=== PATIENT | female | born 1960 | race Caucasian/White ===

== ENCOUNTER → 2016-11-17 | Outpatient (CLI) | payer OTHER ==
[~2016-11-17] VITALS: Ht 170.2 cm; Wt 108.9 kg
[~2016-11-17] MED LIST: IBUP40TA PO; LEVO500T32 PO; LIDOCAINE 2% INJ 100 MG/5 ML SDV (FOR ANES.) As Ordered ONE; LR 1,000 ML IV SCH; MONT10TA2 PO; PROPOFOL 200 MG/20 ML VIAL As Ordered ONE; SUDATAB15 PO; ZYRTCHW PO
[2016-11-17 09:15] VITALS: BP 163/101
--- NOTE | 2016-11-17 10:14 | ROOR ---
Patient Name: Makenna Wilkerson Procedure Date: 11/17/2016 8:15 AM Date of : 1960 Age: 56 Room: [facility] Gender: Female Note Status: Finalized Procedure: Colonoscopy Indications: Surveillance: Personal history of adenomatous polyps on last colonoscopy > 5 years ago, Last colonoscopy: January 2010 Providers: Celio Rodgers MD Referring MD: EUSEBIO REID NP Requesting Provider: Medicines: Monitored Anesthesia Care Complications: No immediate complications. Procedure: Pre-Anesthesia Assessment: - Prior to the procedure, a History and Physical was performed, and patient medications and allergies were reviewed. The patient is competent. The risks and benefits of the procedure and the sedation options and risks were discussed with the patient. All questions were answered and informed consent was obtained. Patient identification and proposed procedure were verified by the physician, the nurse and the anesthesiologist in the procedure room. Mental Status Examination: alert and oriented. Airway Examination: normal oropharyngeal airway and neck mobility. CV Examination: regular rate and rhythm. Prophylactic Antibiotics: The patient does not require prophylactic antibiotics. Prior Anticoagulants: The patient has taken no previous anticoagulant or antiplatelet agents. ASA Grade Assessment: II - A patient with mild systemic disease. After reviewing the risks and benefits, the patient was deemed in satisfactory condition to undergo the procedure. The anesthesia plan was to use monitored anesthesia care (MAC). Immediately prior to administration of medications, the patient was re-assessed for adequacy to receive sedatives. The heart rate, respiratory rate, oxygen saturations, blood pressure, adequacy of pulmonary ventilation, and response to care were monitored throughout the procedure. The physical status of the patient was re-assessed after the procedure. The Colonoscope was introduced through the anus and advanced to the cecum, identified by appendiceal orifice and ileocecal valve. The colonoscopy was somewhat difficult due to multiple diverticula in the colon. The patient tolerated the procedure well. The quality of the bowel preparation was good. Findings: The perianal and digital rectal examinations were normal. Many large-mouthed diverticula were found in the entire colon. The exam was otherwise without abnormality. There was a small lipoma, 15 mm in diameter, in the cecum. Impression: - Diverticulosis in the entire examined colon. - The examination was otherwise normal. - No specimens collected. Recommendation: - Discharge patient to home. - Resume regular diet. - Continue present medications. Celio Rodgers MD 11/17/2016 10:14:39 AM Number of Addenda: 0 Note Initiated On: 11/17/2016 8:15 AM Estimated Blood Loss: Estimated blood loss: none.
== END | disposition home or self-care (01) ==
LOC: M OPP 07:25
PROVIDERS: ATTEND Surgery
DX: Z12.11 Encounter for screening for malignant neoplasm of colon (principal); Z86.010 Personal history of colon polyps; K57.30 Diverticulosis of large intestine without perforation or abscess without bleeding; D17.5 Benign lipomatous neoplasm of intra-abdominal organs; R12 Heartburn; R06.83 Snoring; G89.29 Other chronic pain; M79.1 Myalgia; F41.9 Anxiety disorder, unspecified; Z88.2 Allergy status to sulfonamides; Z88.1 Allergy status to other antibiotic agents

== ENCOUNTER → 2017-03-11 | Outpatient (REF) | payer OTHER ==
[~2017-03-11] MED LIST changes: -LIDOCAINE 2% INJ 100 MG/5 ML SDV (FOR ANES.) As Ordered ONE; -LR 1,000 ML IV SCH; -PROPOFOL 200 MG/20 ML VIAL As Ordered ONE
== END ==
LOC: M LAB REF 11:20
PROVIDERS: ATTEND Surgery
DX: D48.5 Neoplasm of uncertain behavior of skin (principal)

== ENCOUNTER → 2017-08-17 | Outpatient (CLI) | payer OTHER ==
[~2017-08-17] MED LIST changes: +LEVO500T3 PO; -LEVO500T32 PO
[2017-08-17 09:00] LABS: BASO % 0.3 % (0.0-1.0); EOS # 0.2 10^3/uL (0.0-0.50); EOS % 2.5 % (0.0-3.0); IMMATURE GRANULOCYTE % 0.3 % (0-0); LYMPH # 0.8 10^3/uL (1.5-4.5); LYMPH % 14.1 % (24.0-44.0); MEAN CORPUSCULAR HEMOGLOBIN 27.1 pg (27.0-33.0); MEAN CORPUSCULAR HGB CONC 32.1 g/dl (32.0-36.5); MEAN CORPUSCULAR VOLUME 84.3 fl (80.0-96.0); MONO # 0.4 10^3/uL (0.0-0.8); MONO % 6.9 % (0.0-5.0); NEUTROPHILS # 4.5 10^3/uL (1.8-7.7); NEUTROPHILS % 75.9 % (36.0-66.0); PLATELET COUNT, AUTOMATED 200 10^3/uL (150-450); RED CELL DISTRIBUTION WIDTH 14.5 % (11.5-14.5)
[2017-08-17 09:01] LABS: ADD MANUAL DIFFER NO; DIFF SLIDE NUMBER 136
[2017-08-17 10:57] LABS: ALBUMIN 3.8 GM/DL (3.2-5.2); ALKALINE PHOSPHATASE 101 U/L (45-117); ALT/SGPT 22 U/L (12-78); ANION GAP 5 MEQ/L (8-16); AST/SGOT 13 U/L (15-37); BILIRUBIN,TOTAL 0.6 MG/DL (0.2-1.0); BLOOD UREA NITROGEN 14 MG/DL (7-18); CALCIUM LEVEL 9.2 MG/DL (8.5-10.1); CARBON DIOXIDE LEVEL 33 MEQ/L (21-32); CHLORIDE LEVEL 103 MEQ/L (98-107); CHOLESTEROL LEVEL 171 MG/DL (<200); CREATININE FOR GFR 0.66 MG/DL (0.55-1.02); FREE T4 1.16 NG/DL (0.76-1.46); GLOMERULAR FILTRATION RATE > 60.0 (>51); GLUCOSE, FASTING 94 MG/DL (70-105); POTASSIUM SERUM 4.3 MEQ/L (3.5-5.1); SODIUM LEVEL 141 MEQ/L (136-145); TOTAL PROTEIN 7.6 GM/DL (6.4-8.2); TRIGLYCERIDES LEVEL 164 MG/DL (<150)
== END ==
LOC: M WUC 08:19
PROVIDERS: ATTEND Nurse Practitioner Adult Health
DX: E55.9 Vitamin D deficiency, unspecified (principal); E78.00 Pure hypercholesterolemia, unspecified; Z79.899 Other long term (current) drug therapy

== ENCOUNTER → 2018-03-30 | Outpatient (CLI) | payer OTHER ==
[2018-03-30 09:02] LABS: BASO % 0.4 % (0.0-1.0); EOS # 0.2 10^3/uL (0.0-0.50); EOS % 2.6 % (0.0-3.0); HEMATOCRIT 43.2 % (36.0-47.0); HEMOGLOBIN 13.9 g/dl (12.0-15.5); IMMATURE GRANULOCYTE # 0.1 10^3/uL (0-0); IMMATURE GRANULOCYTE % 1.1 % (0-3.0); LYMPH # 0.9 10^3/uL (1.5-4.5); LYMPH % 15.1 % (24.0-44.0); MEAN CORPUSCULAR HEMOGLOBIN 27.6 pg (27.0-33.0); MEAN CORPUSCULAR HGB CONC 32.2 g/dl (32.0-36.5); MEAN CORPUSCULAR VOLUME 85.9 fl (80.0-96.0); MONO # 0.4 10^3/uL (0.0-0.8); MONO % 6.9 % (0.0-5.0); NEUTROPHILS # 4.2 10^3/uL (1.8-7.7); NEUTROPHILS % 73.9 % (36.0-66.0); PLATELET COUNT, AUTOMATED 209 10^3/uL (150-450); RED BLOOD COUNT 5.03 10^6/uL (4.00-5.40); RED CELL DISTRIBUTION WIDTH 14.9 % (11.5-14.5); WHITE BLOOD COUNT 5.7 10^3/uL (4.0-10.0)
[2018-03-30 09:36] LABS: TOTAL 25(OH) VITAMIN D 24.2 NG/ML (30.0-100.0)
[2018-03-30 09:38] LABS: ALBUMIN 3.7 GM/DL (3.2-5.2); ALBUMIN/GLOBULIN RATIO 0.97 (1.00-1.93); ALKALINE PHOSPHATASE 103 U/L (45-117); ALT/SGPT 25 U/L (12-78); ANION GAP 4 MEQ/L (8-16); AST/SGOT 17 U/L (7-37); BILIRUBIN,TOTAL 0.5 MG/DL (0.2-1.0); BLOOD UREA NITROGEN 13 MG/DL (7-18); CALCIUM LEVEL 9.1 MG/DL (8.5-10.1); CARBON DIOXIDE LEVEL 30 MEQ/L (21-32); CHLORIDE LEVEL 107 MEQ/L (98-107); CHOLESTEROL LEVEL 163 MG/DL (<200); CHOLESTEROL RISK RATIO 4.289 (<5); CREATININE FOR GFR 0.65 MG/DL (0.55-1.30); FREE T4 1.08 NG/DL (0.76-1.46); GLOMERULAR FILTRATION RATE > 60.0 (>51); GLUCOSE, FASTING 87 MG/DL (70-100); HDL CHOLESTEROL 38 MG/DL (>40); NON-HDL-C 125 MG/DL; POTASSIUM SERUM 4.8 MEQ/L (3.5-5.1); SODIUM LEVEL 141 MEQ/L (136-145); TOTAL PROTEIN 7.5 GM/DL (6.4-8.2); TRIGLYCERIDES LEVEL 170 MG/DL (<150)
[2018-03-30 09:59] LABS: ESTIMATED AVERAGE GLUCOSE 114 MG/DL (60-110); HEMOGLOBIN A1c 5.6 %
== END ==
LOC: M WUC 08:12
DX: Z79.899 Other long term (current) drug therapy (principal)
CPT/HCPCS: 84443

== ENCOUNTER 2021-08-10 11:52 | Emergency (ER) | payer OTHER ==
[~2021-08-10] VITALS: Ht 170.2 cm; Wt 104.1 kg
[~2021-08-10 11:52] MED LIST changes: +IBUP1TAB5 PO; -IBUP40TA PO; +MONT10TA10 PO; -MONT10TA2 PO
[2021-08-10] MEDS ORDERED: ESTR0.1C5 (12:03)
[2021-08-10 12:40] LABS: BASO % 0.4 % (0.0-1.0); EOS # 0.1 10^3/uL (0.0-0.5); EOS % 2.9 % (0.0-3.0); HEMATOCRIT 44.8 % (36.0-47.0); HEMOGLOBIN 14.6 g/dl (12.0-15.5); LYMPH # 0.9 10^3/uL (1.5-5.0); LYMPH % 17.9 % (24.0-44.0); MEAN CORPUSCULAR HEMOGLOBIN 28.1 pg (27.0-33.0); MEAN CORPUSCULAR HGB CONC 32.6 g/dl (32.0-36.5); MEAN CORPUSCULAR VOLUME 86.3 fl (80.0-96.0); MONO # 0.3 10^3/uL (0.0-0.8); MONO % 6.7 % (2.0-8.0); NEUTROPHILS # 3.4 10^3/uL (1.5-8.5); NEUTROPHILS % 71.3 % (36.0-66.0); PLATELET COUNT, AUTOMATED 190 10^3/uL (150-450); RED BLOOD COUNT 5.19 10^6/uL (4.00-5.40); WHITE BLOOD COUNT 4.8 10^3/uL (4.0-10.0)
[2021-08-10 13:09] LABS: ALBUMIN 3.7 GM/DL (3.2-5.2); BILIRUBIN,DIRECT 0.2 MG/DL (0.0-0.2); BILIRUBIN,TOTAL 0.6 MG/DL (0.2-1.0); TOTAL PROTEIN 7.4 GM/DL (6.4-8.2)
[2021-08-10] MEDS ORDERED: NS 1,000 ML IV ONE (13:25)
[2021-08-10] MEDS ORDERED: ONDANSETRON 4MG/2ML VIAL IV ONE (13:25)
[2021-08-10] MEDS ORDERED: KETOROLAC 30 MG/ML 1ML VIAL IV ONE (13:25)
--- NOTE | 2021-08-10 13:46 | REP ---
INDICATION: left flank pain, hematuria. COMPARISON: None. TECHNIQUE: Standard helical technique without intravenous or oral bowel preparatory contrast. FINDINGS: The lung bases are clear. There is a large 9.9 by 9.7 by 8.6 cm sized mixed density mass arising from the interpolar region of the left kidney. Limited evaluation of the liver, gallbladder, spleen, pancreas, adrenal glands, and right kidney show no gross abnormalities. Limited evaluation of the abdominal aorta and para-aortic regions show no gross abnormalities. Limited evaluation of the bowel loops and the mesenteries show no gross abnormalities. There is no evidence of free fluid or free air. Bone window technique throughout the exam shows the osseous structures to be within normal limits for the patient's age. IMPRESSION: There is a large left renal mass, as described above, consistent with neoplasm. <Electronically signed by Philip Sutton > 08/10/21 2314
[2021-08-10] MEDS ORDERED: MORPHINE 4 MG/ML 1ML VIAL/SYRINGE (J2270) IV ONE (14:45)
[2021-08-10] MEDS ORDERED: ISOVUE-370 76% 100ML VIAL As Ordered ONE (14:52)
--- NOTE | 2021-08-10 15:16 | REP ---
INDICATION: renal neoplasm, r/o other CA, mets COMPARISON: None. TECHNIQUE: Standard helical technique after the intravenous administration of 100 cc Isovue 370 FINDINGS: The mediastinum and pulmonary kellie are within normal limits. There is no mass or adenopathy. There are no pleural or pericardial effusions. The imaged osseous structures are within normal limits. Evaluation of the lung leon shows no abnormal nodules, masses, or opacities. IMPRESSION: CT findings are within normal limits. <Electronically signed by Philip Sutton > 08/10/21 [id number]
--- NOTE | 2021-08-10 15:19 | REP ---
INDICATION: renal neoplasm, r/o other CA, mets. COMPARISON: Earlier today TECHNIQUE: Standard helical technique after the intravenous administration of 100 cc Isovue 370 FINDINGS: The left renal mass seen on the CT scan earlier today has mixed enhancing characteristics. There are no other significant changes compared to the prior noncontrast enhanced CT obtained at 1:30 p.m. today IMPRESSION: Enhancing left renal mass previously described on the CT scan obtained earlier today consistent with neoplasm. There are no additional findings. <Electronically signed by Philip Sutton > 08/10/21 [id number]
[2021-08-10] MEDS ORDERED: PERCOCET 5MG/325MG TAB PO ONE (15:45)
[2021-08-10] MEDS ORDERED: PERC5TAB12 PO (15:47)
[2021-08-10] MEDS ORDERED: ONDA4TAB6 PO (15:47)
[2021-08-10 16:20] VITALS: BP 155/85
== END 2021-08-10 16:21 | disposition home or self-care (01) ==
LOC: M ED 11:52
DX: D49.512 Neoplasm of unspecified behavior of left kidney (principal); R31.9 Hematuria, unspecified; Z88.1 Allergy status to other antibiotic agents; Z88.2 Allergy status to sulfonamides
CPT/HCPCS: 71260; 74176; 74177; 80047; 80076; 81001; 83690; 85025; 96361; 96374; 96375; 99284; J1885; J2270; J2405; Q9967

== ENCOUNTER → 2021-08-20 | Outpatient (REF) | payer OTHER ==
[~2021-08-20] MED LIST changes: +ESTR0.1C5; +ONDA4TAB6 PO; +PERC5TAB12 PO
[2021-08-20 16:50] LABS: APPEARANCE, URINE CLEAR (CLEAR); BACTERIA, URINE AUTO 1+ (NEGATIVE); BILIRUBIN, URINE AUTO NEGATIVE (NEGATIVE); BLOOD, URINE BLOOD 2+ (NEGATIVE); COLOR, URINE YELLOW (YELLOW); GLUCOSE, URINE (UA) AUTO NEGATIVE (NEGATIVE); KETONE, URINE AUTO NEGATIVE (NEGATIVE); LEUKOCYTE ESTERASE, URINE AUTO NEGATIVE (NEGATIVE); MUCUS, URINE SMALL (NEGATIVE); NITRITE, URINE AUTO NEGATIVE (NEGATIVE); PROTEIN, URINE AUTO NEGATIVE (NEGATIVE); RBC, URINE AUTO 1 /HPF (0-3); SPECIFIC GRAVITY URINE AUTO 1.014 (1.002-1.035); SQUAMOUS EPITHELIAL CELL UR AU 0 /HPF (0-6); UROBILINOGEN, URINE AUTO 0.2 mg/dL (0.0-2.0); WBC, URINE AUTO 0 /HPF (0-3)
[2021-08-20 16:53] LABS: INR 0.91; PROTHROMBIN TIME 12.7 SECONDS (12.7-14.5)
[2021-08-20 16:54] LABS: PARTIAL THROMBOPLASTIN TIME 30.8 SECONDS (25.9-37.0)
== END ==
LOC: M LAB REF 16:11
PROVIDERS: ATTEND Internal Medicine
DX: Z01.818 Encounter for other preprocedural examination (principal)

== ENCOUNTER → 2021-08-27 | Outpatient (CLI) | payer OTHER ==
[~2021-08-27] MED LIST changes: +ACET325C5 PO; +ASCO1TAB3 PO; +BIOT5TAB3 PO; +D200CAP PO; +DOCU-153 PO; +MULT1TAB16 PO; +PROHANCE 279.3MG/ML 15ML VIAL ONE; +PROHANCE 279.3MG/ML 5ML VIAL ONE; +VITACAP8 PO; +ZINC1TAB2 PO
--- NOTE | 2021-08-27 10:19 | REP ---
INDICATION: RENAL MASS. COMPARISON: Previous CT 08/10/2021 reviewed TECHNIQUE: Pre and post contrast 3T MRI of the abdomen attention left kidney was performed utilizing various sequences. Gadolinium utilized: 20 cc ProHance FINDINGS: Arising from the anterior aspect of the left kidney there is a large 10 by 9.5 by 9.4 cm sized mixed signal intensity heterogeneously enhancing mass. The mass compresses the left renal vein. There is no evidence of an intravenous mass or abnormal enhancement. There is also some compression on the ipsilateral renal artery. There is no evidence of para-aortic adenopathy. There is no evidence of free fluid. The imaged portion of the liver and spleen are within normal limits. The pancreas is unremarkable in appearance. The cortical and marrow signal seen throughout the imaged osseous structures is within normal limits. 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 <Electronically signed by Philip Sutton > 08/27/21 1016
== END ==
LOC: M PLAIMG 07:38
PROVIDERS: ATTEND Nurse Practitioner Women's Health
DX: N28.89 Other specified disorders of kidney and ureter (principal)
CPT/HCPCS: 74183; A9576

== ENCOUNTER → 2021-08-28 | Outpatient (CLI) | payer OTHER ==
[~2021-08-28] MED LIST changes: -PROHANCE 279.3MG/ML 15ML VIAL ONE; -PROHANCE 279.3MG/ML 5ML VIAL ONE
== END ==
LOC: M LABSMTC 09:48
PROVIDERS: ATTEND Anesthesiology
DX: Z01.812 Encounter for preprocedural laboratory examination (principal); Z11.52 Encounter for screening for COVID-19

== ENCOUNTER 2021-09-02 06:25 | Inpatient (IN) | payer OTHER ==
[~2021-09-02] VITALS: Ht 170.2 cm; Wt 102.1 kg
[~2021-09-02 06:25] MED LIST changes: +LR 1,000 ML IV SCH; +ceFAZolin SOD 2 GM in IV 1 EA IV SCH
--- OUTSIDE RECORDS SUMMARY | 2021-09-02 06:31 | CCD ---
Author Author [facility] Organization [facility] Address Unknown Phone Unavailable Care Team Providers Care Package Checker Name Role Phone Alma Steve Unavailable PROBLEMS Type Condition ICD9-CM Code [id number] Code Onset Dates Condition S tatus W/U Status Risk SNOMED Code Notes Problem Left renal mass N28.89 Active confirmed 3090 30884 Problem Renal mass N28.89 Active confirmed 795925957 ALLERGIES Allergen (clinical drug ingredient) Drug/Non Drug Allergy do cumented on EMR Reaction Allergy Type Onset Date Status Sulfasalazine Sulfa Antibiotics pain,fever,chills Drug Allergy Active ENCOUNTERS from 1960 to 2021-08-14 Encounter Location Date Provider Diagnosis [facility] Urology [phone] [place] [address] Jul, Alma Evi Renal mass N28.89 ; Pre-op testing Z01.8 18 and Gross hematuria R31.0 IMMUNIZATIONS No Information SOCIAL HISTORY Tobacco Use: Social History Observation Description Date Details (start date - stop date) Former Smoker Sex Assigned At : Social History Observation Description Sex Assigned At Unknown Language: Question Answer Notes Languages spoken: Greek Sexual Hx: Question Answer Notes Had sex in the last 12 months (vaginal, oral, or anal)? Yes Have you ever had an STD? Yes Prevention Strategies discussed: Other with Men only Use protection? No Other? Yes Alcohol Screening: Question Answer Notes Did you have a drink containing alcohol in the past year? Ye s Points 0 Interpretation Negative How often did you have six or more drinks on one occas ion in the past year? Never (0 points) How many drinks did you have on a typica l day when you were drinking in the past year? 1 or 2 (0 points) How often did you have a drink containing alcohol in t he past year? Never (0 points) Tobacco Use: Question Answer Notes Are you a: former smoker How long has it been since you last smoked? > 10 years REASON FOR REFERRAL No Information VITAL SIGNS Weight 231.4 lbs Jul, Weight-kg 104.96 kg Jul, Height 67 in Jul, BMI 36.24 kg/m2 Jul, Heart Rate 77 /min Jul, Respiratory Rate 18 /min Jul, Temperature 98.6 degrees Fahrenheit Jul, Oximetry 96 Jul, Blood pressure systolic 132 mm Hg Jul, Blood pressure diastolic 84 mm Hg Jul, MEDICATIONS Medication SIG (Take, Route, Frequency, Duration) Notes Start Da te End Date Status Percocet 5-325 MG 1 tablet as needed Orally every 6 hrs Active Tylenol 325 MG 1 tablet as needed Orally every 4 hrs Active Vitamins B1 B6 B12 Active Womens Multi - as directed Orally Ac tive Montelukast Sodium 10 MG 1 tablet Orally Once a day for 30 day(s) Active PROCEDURES No Information RESULTS No Results REASON FOR VISIT [facility] ED f/u renal mass MEDICAL (GENERAL) HISTORY Type Description Date Medical History renal mass Surgical History full hysterectomy Surgical History mesh placement in abdomen [facility] History tubal ligation Hospitalization History surgery related Hospitalization History child x2 Goals Section No Information Health Concerns No Information MEDICAL EQUIPMENT No Information MENTAL STATUS No Information FUNCTIONAL STATUS No Information ASSESSMENTS Encounter Date Diagnosis Assessment Notes Treatment Notes Treatm ent Clinical Notes Jul, Renal mass (ICD-10 - N28.89) Jul, Pre-op testing (ICD-10 - Z01.818) Jul, Gross hematuria (ICD-10 - R31.0) Jul, Other Nephrectomy mate rial was printed,Nephrectomy home care material was printed PLAN OF TREATMENT Treatment Notes Test Name Order Date Electrocardiogram (EKG) 2021-08-13 [facility] MRI ABD W/O FOL WITH 2021-08-13 Future Test Test Name Order Date URINE CULTURE [id number] UA URINALYSIS [id number] URINE CULTURE [id number] UA URINALYSIS [id number] Comprehensive Metabolic Profile (CMP) [id number] PT & APTT [id number] CBC - Complete Blood Count [id number] Insurance Providers Payer Name Payer Address Payer Phone Insured Name Patient Relati onship to Insured Coverage Start Date Coverage End Date [facility] [address] [address] [facility] [id number] MADHU NIETO 2021
--- OUTSIDE RECORDS SUMMARY | 2021-09-02 06:31 | CCD | Continuity of Care Document ---
Author Author Makenna ZAIDI DO Organization Unknown Address [address] [facility] [address] [place] [address] Phone [phone] Care Team Providers Care Carbonation Equipment Tender Name Role Phone Mitul Zaidi DO AUTM [phone] Varun Vilchis M.D. AUTM [phone] [facility] AUTM Problems Description No Information Available Social History Type Date Description Comments Sex Unknown ETOH Use Occasionally consumes alcohol Tobacco Use Start: Unknown End: Unknown Patient is a former smoker smoked for 1 ximena every 2 weeks on and off for 15 years,quit late Allergies and adverse reactions Active Allergies Criticality Reaction | Severity Comments Date Sulfa Unable to assess criticality fever and so re neck 08/20/2021 Medications Active Medications SIG Qnty Indications Ordering Provide r Date Valium 5mg Tablets 2 tabs by mouth 30 minutes before MRI 08/27/21 at 7:30 Am 2tabs Mitul Zaidi DO 08/21/2021 Montelukast Sodium 10mg Tablets take one tablet by mouth at bedtime Unknown Ibuprofen 600mg Tablets as ne eded Unknown Estrace 0.1mg/GM Cream insert 1 gram vaginally every night 2 times a week Unknown Multivitamin Women 50+ 50+ Tablets every day Unknown Biotin one daily Unknown Vitamin D3 one daily Unknown Power Zinc Unknown Black Elderberry(Pat-Flower) 575mg Capsules 1 by mouth every day Unknown 000 Calcium Magn one daily Unknown Immunizations Description No Information Available Vital Signs Date Vital Result Comment 08/27/2021 9:26am BP Systolic 138 mmHg BP Diastolic 78 mmHg Heart Rate 74 /min Height 68 inches 5'8" Weight 223.00 lb O2 % BldC Oximetry 99 % BMI (Body Mass Index) 33.9 kg/m2 08/20/2021 11:12am BP Systolic 126 mmHg BP Diastolic 80 mmHg Heart Rate 77 /min Height 68 inches 5'8" Weight 225.00 lb BMI (Body Mass Index) 34.2 kg/m2 Results Test Acquired Date Facility Test Result H/L Range Note PT & Aptt 08/20/[address] [address] [phone] Prothrombin Time 12.7 seconds Normal 12.7-14.5 Inr 0.91 Normal 1 Partial Thromboplastin Time 30.8 seconds Normal 25.9-37.0 Ua Routine 08/20/[address] [address] [phone] Appearance, Urine CLEAR Normal Clear Color, Urine YELLOW Normal Yellow PH,Urine 5.0 units Normal 5.0-9.0 Specific Gamerco Urine Auto 1.014 Normal 1.002-1.035 Protein, Urine Auto NEGATIVE mg/dL Normal Negative Glucose, Urine (Ua) Auto NEGATIVE mg/dL Normal Negative Ketone, Urine Auto NEGATIVE mg/dL Normal Negative Urobilinogen, Urine Auto 0.2 mg/dL Normal 0.0-2.0 Bilirubin, Urine Auto NEGATIVE Normal Negative Nitrite, Urine Auto NEGATIVE Normal Negative Leukocyte Esterase, Urine Auto NEGATIVE Normal Negative Blood, Urine Blood 2+ High Negative WBC, Urine Auto 0 /HPF Normal 0-3 RBC, Urine Auto 1 /HPF Normal 0-3 Bacteria, Urine Auto 1+ High Negative Squamous Epithelial Cell Ur AU 0 /HPF Normal 0-6 Mucus, Urine SMALL Normal Negative Hyaline Cast, Urine Auto 0 /LPF Normal 0-1 Laboratory test finding 08/20/[address] [address] [phone] Urine Culture FULL REPORT IN L <SEE NOTE> Normal 2 Complete Blood Count 08/20/2021 [place] [facility] Resource Recovery Engineer: [place] [address] [phone] WBC 5.1 x10*3/UL 4.1 - 10.9 RBC 5.31 x10*6/UL 4.20 - 6.30 Hemoglobin 14.7 g/dL 12.0 - 18.0 Hematocrit 44.0 % 37.0 - 51.0 MCV 82.7 fL 80.0 - 97.0 MCH 27.6 pg 26.0 - 32.0 MCHC 33.4 g/dL 31.0 - 38.0 RDW 13.7 % 11.6 - 13.7 PLT 219 x10*3/UL 140 - 440 MPV 8.2 FL 7.8 - 11.0 Lymph % 13.0 % 10.0 - 58.5 Mid % 3.0 % 1.7 - 9.3 Neut % 84.0 % 37.0 - 92.0 Lymph # 0.6 x10*3/UL 0.6 - 4.1 Mid # 0.2 x10*3/UL 0.1 - 0.6 Neut # 4.3 x10*3/UL 2.0 - 7.8 Comprehensive Chem Profile 08/20/2021 [facility] [facility] Resource Recovery Engineer: [place] [address] [phone] Glucose 86 mg/dL 74 - 99 3 BUN 17 mg/dL 7 - 18 Creatinine 0.6 mg/dL 0.6 - 1.3 Sodium 141 mEq/L 136 - 145 Potassium 4.3 mEq/L 3.5 - 5.1 Chloride 104 mEq/L 98 - 107 Carbon Dioxide 30 mEq/L 21 - 32 Calcium 9.2 mg/dL 8.5 - 10.1 Alk. Phosphatase 102 mg/dL 46 - 116 Total Bilirubin 0.5 mg/dL 0.2 - 1.0 Ast (Sgot) 17 U/L 15 - 37 Alt (SGPT) 21 U/L 12 - 78 Albumin 3.9 g/dL 3.4 - 5.0 Total Protein 7.8 g/dL 6.4 - 8.2 A/G Ratio 1.00 CALC 1.00 - 1.90 GFR >= 60 mL/min >60 GFR >= 60 mL/min >60 4 Lipid Profile 08/20/2021 [facility] [facility] Resource Recovery Engineer: Dr Edward Zaidi [place], [place] [id number] [phone] Cholesterol 194 mg/dL 131 - 200 Triglycerides 92 mg/dL 30 - 150 HDL Cholesterol 46 mg/dL 35 - 60 LDL (Calculated) 130 CALC 50 - 159 1 THERAPUTIC HUMAN INR VALUES INDICATIONS NORMAL RANGES PROPHYLAXIS/TREATMENT OF: VENOUS THROMBOSIS 2.0-3.0 PULMONARY EMBOLISM 2.0-3.0 PREVENTION OF SYSTEMIC EMBOLISM FROM: TISSUE HEART VALVES 2.0-3.0 ACUTE MYOCARDIAL INFARCTION 2.0-3.0 VALVULAR HEART DISEASE 2.0-3.0 ATRIAL FIBRILLATION 2.0-3.0 MECHANICAL VALVES(HIGH RISK) 2.5-3.5 RECURRENT MYOCARDIAL INFARCTION 2.5-3.5 2 FULL REPORT IN LAB NOTES (eC W and Medent). NO GROWTH 3 100-125 mg/dL PRE-DIABET ES/FASTING >126 mg/dL DIABETES/FASTING 4 CHRONIC KIDNEY DISEASE STAGI NG PER NKF STAGE I & II GFR >= 60 NORMAL TO MILDLY DECREASED STAGE III GFR 30-59 MODERATELY DECREASED STAGE IV GFR 15-29 SEVERELY DECREASED STAGE V GFR <15 VERY LITTLE GFR LEFT ESRD GFR <15 ON SHIP'S COOK Procedures Description No Information Available Medical Devices Description No Information Available Encounters Description No Information Available Assessments Date Code Description Provider 08/27/2021 Z01.810 Encounter for preprocedural card iovascular examination Mitul Zaidi, 08/27/2021 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 08/27/2021 - Mitul Zaidi DO* 01.810 Encounter for preprocedural cardiovascular examination * D41.12 Neoplasm of uncertain behavior of left renal pelvis * E66.9 Obesity, unspecified* Comments:* Continues with lifestyle changes, congratulated her on her excellent weight loss already and encouraged her to get more active. Functional Status Description No Information Available Mental Status Description No Information Available Referrals Description No Information Available
--- OUTSIDE RECORDS SUMMARY | 2021-09-02 06:31 | CCD | Continuity of Care Document ---
Author Author Makenna ZAIDI DO Organization Unknown Address [address] [facility] [address] [place] [address] Phone [phone] Care Team Providers Care Stacker Name Role Phone Mitul Zaidi DO AUTM [phone] Varun Vilchis M.D. AUTM [phone] [facility] [place] AUTM Problems Description No Information Available Social [...] SIG Qnty Indications Ordering Provide r Date Montelukast Sodium 10mg Tablets take one tablet [...] Available Vital Signs Date Vital Result Comment 08/20/2021 11:12am BP Systolic 126 mmHg BP Diastolic 80 mmHg Heart Rate 77 /min Height 68 inches 5'8" Weight 225.00 lb BMI (Body Mass Index) 34.2 kg/m2 Results Test Acquired Date Facility Test Result H/L Range Note Laboratory test finding 08/20/2021 [facility] [address] [place] [address] [phone] Urine Culture <pending> Complete Blood Count 08/20/2021 [place] [employer] Board Marker: Dr Edward Zaidi [place] [id number] [phone] WBC 5.1 x10*3/UL 4.1 - 10.9 RBC [...] 2.0 - 7.8 Comprehensive Chem Profile 08/20/2021 [place] [employer] Board Marker: [place] [address] [phone] Glucose 86 mg/dL 74 - 99 1 BUN 17 mg/dL 7 - 18 Creatinine [...] mL/min >60 GFR >= 60 mL/min >60 2 Lipid Profile 08/20/2021 [facility] Racing Board Marker: [place] [address] [phone] Cholesterol 194 mg/dL 131 - 200 Triglycerides 92 mg/dL 30 - 150 HDL Cholesterol 46 mg/dL 35 - 60 LDL (Calculated) 130 CALC 50 - 159 1 100-125 mg/dL PRE-DIABET ES/FASTING >126 mg/dL DIABETES/FASTING 2 CHRONIC KIDNEY DISEASE STAGI NG PER NKF STAGE I & II GFR >= 60 NORMAL TO MILDLY DECREASED STAGE III GFR 30-59 MODERATELY DECREASED STAGE IV GFR 15-29 SEVERELY DECREASED STAGE V GFR <15 VERY LITTLE GFR LEFT ESRD GFR <15 ON SENIOR GAME DESIGNER Procedures Description No Information Available Medical Devices Description No Information Available Encounters Description No Information Available Assessments Date Code Description Provider 08/20/2021 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 08/20/2021 - Mitul Zaidi DO* D41.12 Neoplasm of uncertain behavior of left renal pelvis* Comments:* Reviewed CT imaging with her so that she could actually see the mass. Will see her next week for pre-op assessment. She is stable and with minimal pain at this time. * M79.18 Myofascial pain syndrome* Comments:* Well controlled with current conservative measures, will continue to monitor. 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 * E66.9 Obesity, unspecified* Comments:* Continues with lifestyle changes, congratulated her on her excellent weight loss already and encouraged her to get more active. Functional Status Description No Information Available Mental Status Description No Information Available Referrals Description No Information Available
--- OUTSIDE RECORDS SUMMARY | 2021-09-02 06:31 | CCD | Continuity of Care Document ---
Author Author Makenna LUNA Organization Unknown Address [address], [address] [place] [address] Phone [phone] Care Team Providers Care Pomologist Name Role Phone No PCP (Not For Referring DR) AUTM Unavailabl e Problems Description No Information Available Social History Type Date Description Comments Sex Unknown Tobacco Use Start: Unknown Never Smoked Cigarettes ETOH Use Rarely consumes alcohol Sun Exposure moderate amount of sun exposure Sun Exposure Tanning bed - Has used in past. No longer using. Sun Exposure Has experienced blistering from sunburns Sun Exposure Uses > 30 SPF Allergies, Adverse Reactions, Alerts Active Allergies Criticality Reaction | Severity Comments Date sulfa Unable to assess criticality 05/30/2021 Medications Active Medications SIG Qnty Indications Ordering Provide r Date Clobetasol Propionate 0.05% Soluti on apply to scalp sparingly twice a day x 2 weeks then as needed itching 50ml L40.0 Megan HathawayN.P. 05/30/2021 Zyrtec Allergy Unknown Medications Administered in Office Medication SIG Qnty Indications Ordering Provider Date Injection Intralesional Up To 7 Injection MILAGRO Donovan 2020 Immunizations Description No Information Available Vital Signs Date Vital Result Comment 07/14/2021 9:55am BP Systolic 125 mmHg BP Diastolic 65 mmHg Respiratory Rate 18 /min Height 67 inches 5'7" 05/30/2021 10:43am BP Systolic 130 mmHg BP Diastolic 80 mmHg Weight 250.00 lb Respiratory Rate 18 /min Results Description No Information Available Procedures Date Code Description Status 07/14/2021 96667 Office/Outpatient Established Mo d MDM 30-39 Min Completed 07/14/2021 84990 Injection Intralesional Up To 7 Completed 05/30/2021 42298 Office/Outpatient New Moderate M DM 45-59 Minutes Completed 05/30/2021 20829 Destruction Benign L esions Other Than Skin Tags Or Cutan Vascular Completed Medical Devices Description No Information Available Encounters Type Date Location Provider Dx Diagnosis Office Visit 07/14/2021 9:30a Main Office KATTY Donovan L40. 0 Psoriasis vulgaris R20.8 Other disturbances of skin s ensation R23.4 Changes in skin texture Office Visit 05/30/2021 10:45a Main Office Jessy Sahu'jing, F.N.P. L81.4 Other melanin hyperpigmentation L82.1 Other seborrheic keratosis L40.0 Psoriasis vulgaris R20.8 Other disturbances of skin s ensation R23.4 Changes in skin texture Z12.83 Encounter for screening for malignant neoplasm of skin Assessments Date Code Description Provider 07/14/2021 L40.0 Psoriasis vulgaris Jessy kam, F.N.P. 07/14/2021 L40.0 Psoriasis vulgaris MILAGRO Connors 07/14/2021 R20.8 Other disturbances of skin sensa tion Jessy Sahu'jing, F.N.P. 07/14/2021 R20.8 Other disturbances of skin sensa tion MILAGRO Donovan 07/14/2021 R23.4 Changes in skin texture Lorena Sahu'jing, F.N.P. 07/14/2021 R23.4 Changes in skin texture JUSTINA Marrufo-C 05/30/2021 L81.4 Other melanin hyperpigmentation Jessy Sahu'jing, F.N.P. 05/30/2021 L82.1 Other seborrheic keratosis Yuliana Sahu'jing, F.N.P. 05/30/2021 L40.0 Psoriasis vulgaris Jessy Sahu'iveth kam, F.N.P. 05/30/2021 R20.8 Other disturbances of skin sensa tion Jessy O'jing, F.N.P. 05/30/2021 R23.4 Changes in skin texture Catherin jassi O'jing, F.N.P. 05/30/2021 Z12.83 Encounter for screening for nader gnant neoplasm of skin Kelly Hathaway Plan of Treatment Future Appointment(s):* 08/18/2021 12:30 pm - MILAGRO Donovan at Main Office * 06/04/2022 9:30 am - MILAGRO Lou at Main Office 07/14/2021 - MILAGRO Donovan* L40.0 Psoriasis vulgaris* Comments:* Injected with 4 mg/ml of Kenalog 2.0 cc total injected into scalp and hairline. Continue Clobetasol BID x 2 weeks then PRNDiscussed how to use topical steroids safely and not over use to prevent atrophy.Instructed to call with any problems * R20.8 Other disturbances of skin sensation* Comments:* See above. * R23.4 Changes in skin texture* Comments:* See above * Follow up:* 4 week - Psoriasis follow up Functional Status Description No Information Available Mental Status Description No Information Available Referrals Refer to Reason for Referral Status Appt Date Ivon Simmons FNP-C Created [address], [address] [place] [address] [phone]
--- OUTSIDE RECORDS SUMMARY | 2021-09-02 06:31 | CCD | Continuity of Care Document ---
Author Author Makenna ZAIDI DO Organization Unknown Address [address] [facility] [address] [place] [address] Phone [phone] Care Team Providers Care Drycleaner Name Role Phone Mitul Zaidi DO AUTM [phone] Varun Vilchis M.D. AUTM [phone] Problems Description No Information Available Social History [...] H/L Range Note Laboratory test finding 08/20/2021 [facility] [address] [place], [place] [id number] [phone] Urine Culture <pending> Procedures Description No Information Available Medical Devices [...] 9:20 am - Mitul Zaidi DO at [facility] 08/20/2021 - Mitul Zaidi DO* [...]
--- OUTSIDE RECORDS SUMMARY | 2021-09-02 06:31 | CCD ---
Continuity of Care Document (CCD) Created on: 08/21/2021 Makenna Wilkerson External Reference #: [id number] : [id number] Sex: Female Author Author Makenna ZAIDI DO Organization Unknown Address [address] [facility] [address] [place] [address] Phone [phone] Care Team Providers Care Food Service Manager Name Role Phone Mitul Zaidi DO AUTM [phone] Varun Vilchis M.D. AUTM [phone] [facility] AUTM [phone] Problems Description No Information Available Social History [...] H/L Range Note PT & Aptt 08/20/2021 [facility] [address] [place] [address] [phone] Prothrombin Time 12.7 seconds Normal 12.7-14.5 Inr 0.91 Normal 1 Partial Thromboplastin Time 30.8 seconds Normal 25.9-37.0 Ua Routine 08/20/2021 [facility] [address] [place] [address] [phone] Appearance, Urine CLEAR Normal Clear Color, Urine YELLOW Normal Yellow PH,Urine 5.0 units Normal 5.0-9.0 Specific [place] Urine Auto 1.014 Normal 1.002-1.035 Protein, Urine [...] /LPF Normal 0-1 Laboratory test finding 08/20/2021 [facility] [address] [place] [address] [phone] Urine Culture FULL REPORT IN L <SEE NOTE> Normal 2 Complete Blood Count 08/20/2021 [facility] Plastics Tooling Engineer: [place] [address] [phone] WBC 5.1 x10*3/UL 4.1 - 10.9 RBC [...] 2.0 - 7.8 Comprehensive Chem Profile 08/20/2021 [facility] Plastics Tooling Engineer: [place] [address] [phone] Glucose 86 mg/dL 74 - 99 3 [...] 60 mL/min >60 4 Lipid Profile 08/20/2021 [facility] , Plastics Tooling Engineer: [place] [address] [phone] Cholesterol 194 mg/dL 131 - 200 Triglycerides [...] REPORT IN LAB NOTES ([facility] and [facility]). 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 08/20/2021 - Mitul Zaidi DO* [...]
--- OUTSIDE RECORDS SUMMARY | 2021-09-02 06:31 | CCD | Continuity of Care Document ---
Author Author Makenna ZAIDI DO Organization Unknown Address [address] [facility] [address] [place] [address] Phone [phone] Care Team Providers Care Cdl A Driver Name Role Phone Mitul Zaidi DO AUTM [phone] Varun Vilchis M.D. AUTM [phone] Problems Description No Information Available Social History [...] H/L Range Note Laboratory test finding 08/20/2021 [facility] [address] [place], [place] [id number] [phone] Urine Culture <pending> Complete Blood Count 08/20/2021 [facility] Road Mender: [place] [address] [phone] WBC 5.1 x10*3/UL 4.1 - 10.9 RBC [...] 2.0 - 7.8 Comprehensive Chem Profile 08/20/[address] Mender: [place] [address] [phone] Glucose 86 mg/dL 74 - 99 1 [...] 60 mL/min >60 2 Lipid Profile 08/20/2021 [facility] Road Mender: Dr Edward Zaidi [place], [place] [address] [phone] Cholesterol 194 mg/dL 131 - 200 Triglycerides [...] LITTLE GFR LEFT ESRD GFR <15 ON LOAN OPERATIONS MANAGER Procedures Description No Information Available Medical Devices Description No Information Available Encounters Description No Information Available Assessments Date Code Description Provider 08/20/2021 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 08/20/2021 - Mitul Zaidi DO* [...]
--- OUTSIDE RECORDS SUMMARY | 2021-09-02 06:31 | CCD | Continuity of Care Document ---
Author Author Makenna ZAIDI DO Organization Unknown Address [address] [facility] [address] [place] [address] Phone [phone] Care Team Providers Care Wall Covering Installer Name Role Phone Mitul Zaidi DO AUTM [phone] Varun Vilchis M.D. AUTM [phone] Problems Description No Information Available Social History [...] H/L Range Note Laboratory test finding 08/20/2021 [facility] [address] [place], [place] [id number] [phone] Urine Culture <pending> Procedures Description No Information [...] 9:20 am - Mitul Zaidi DO at [facility] 08/20/2021 - Mitul Zaidi DO* [...]
--- OUTSIDE RECORDS SUMMARY | 2021-09-02 06:32 | CCD ---
Author Author [facility] Organization [facility] Address Unknown Phone Unavailable Care Team Providers Care Medical Facilities Section Director Name Role Phone Wharton, Adrianna FINGER COBBLER Unavailable Unavailable Wharton, Adrianna FINGER COBBLER Unavailable Unavailable Wharton, Adrianna FINGER COBBLER Unavailable Unavailable Wharton, Adrianna FINGER COBBLER Unavailable Unavailable Wharton, Adrianna FINGER COBBLER Unavailable Unavailable Wharton, Adrianna FINGER COBBLER Unavailable Unavailable Wharton, Adrianna FINGER COBBLER Unavailable Unavailable Wharton, Adrianna FINGER COBBLER Unavailable Unavailable Wharton, Adrianna FINGER COBBLER Unavailable Unavailable Wharton, Adrianna FINGER COBBLER Unavailable Unavailable Wharton, Adrianna FINGER COBBLER Unavailable Unavailable Wharton, Adrianna FINGER COBBLER Unavailable Unavailable Wharton, Adrianna FINGER COBBLER Unavailable Unavailable Wharton, Adrianna FINGER COBBLER Unavailable Unavailable Wharton, Adrianna FINGER COBBLER Unavailable Unavailable Wharton, Adrianna FINGER COBBLER Unavailable Unavailable Wharton, Adrianna FINGER COBBLER Unavailable Unavailable Wharton, Adrianna FINGER COBBLER Unavailable Unavailable Wharton, Adrianna FINGER COBBLER Unavailable Unavailable Wharton, Adrianna FINGER COBBLER Unavailable Unavailable Wharton, Adrianna FINGER COBBLER Unavailable Unavailable Wharton, Adrianna FINGER COBBLER Unavailable Unavailable Wharton, Adrianna FINGER COBBLER Unavailable Unavailable Wharton, Adrianna FINGER COBBLER Unavailable Unavailable Wharton, Adrianna FINGER COBBLER Unavailable Unavailable Wharton, Adrianna FINGER COBBLER Unavailable Unavailable Wharton, Adrianna FINGER COBBLER Unavailable Unavailable Wharton, Adrianna FINGER COBBLER Unavailable Unavailable Wharton, Adrianna FINGER COBBLER Unavailable Unavailable Wharton, Adrianna FINGER COBBLER Unavailable Unavailable Wharton, Adrianna FINGER COBBLER Unavailable Unavailable Wharton, Adrianna FINGER COBBLER Unavailable Unavailable Wharton, Adrianna FINGER COBBLER Unavailable Unavailable Wharton, Adrianna FINGER COBBLER Unavailable Unavailable Wharton, Adrianna FINGER COBBLER Unavailable Unavailable Wharton, Adrianna FINGER COBBLER Unavailable Unavailable TONTARSKI, G JOSE PA Unavailable Unavailable TONTARSKI, G JOSE PA Unavailable Unavailable TONTARSKI, G JOSE PA Unavailable Unavailable TONTARSKI, G JOSE PA Unavailable Unavailable TONTARSKI, G JOSE PA Unavailable Unavailable TONTARSKI, G JOSE PA Unavailable Unavailable TONTARSKI, G JOSE PA Unavailable Unavailable TONTARSKI, G JOSE PA Unavailable Unavailable TONTARSKI, G JOSE PA Unavailable Unavailable TONTARSKI, G JOSE PA Unavailable Unavailable TONTARSKI, G JOSE PA Unavailable Unavailable TONTARSKI, G JOSE PA Unavailable Unavailable TONTARSKI, G JOSE PA Unavailable Unavailable TONTARSKI, G JOSE PA Unavailable Unavailable TONTARSKI, G JOSE PA Unavailable Unavailable TONTARSKI, G JOSE PA Unavailable Unavailable TONTARSKI, G JOSE PA Unavailable Unavailable TONTARSKI, G JOSE PA Unavailable Unavailable TONTARSKI, G JOSE PA Unavailable Unavailable TONTARSKI, G JOSE PA Unavailable Unavailable TONTARSKI, G JOSE PA Unavailable Unavailable TONTARSKI, G JOSE PA Unavailable Unavailable TONTARSKI, G JOSE PA Unavailable Unavailable TONTARSKI, G JOSE PA Unavailable Unavailable TONTARSKI, G JOSE PA Unavailable Unavailable TONTARSKI, G JOSE PA Unavailable Unavailable TONTARSKI, G JOSE PA Unavailable Unavailable TONTARSKI, G JOSE PA Unavailable Unavailable TONTARSKI, G JOSE PA Unavailable Unavailable TONTARSKI, G JOSE PA Unavailable Unavailable TONTARSKI, G JOSE PA Unavailable Unavailable TONTARSKI, G JOSE PA Unavailable Unavailable TONTARSKI, G JOSE PA Unavailable Unavailable TONTARSKI, G JOSE PA Unavailable Unavailable TONTARSKI, G JOSE PA Unavailable Unavailable TONTARSKI, G JOSE PA Unavailable Unavailable TONTARSKI, G JOSE PA Unavailable Unavailable TONTARSKI, G JOSE PA Unavailable Unavailable TONTARSKI, G JOSE PA Unavailable Unavailable TONTARSKI, G JOSE PA Unavailable Unavailable TONTARSKI, G JOSE PA Unavailable Unavailable TONTARSKI, G JOSE PA Unavailable Unavailable TONTARSKI, G JOSE PA Unavailable Unavailable TONTARSKI, G JOSE PA Unavailable Unavailable TONTARSKI, G JOSE PA Unavailable Unavailable TONTARSKI, G JOSE PA Unavailable Unavailable TONTARSKI, G JOSE PA Unavailable Unavailable CHERYLCHARLES Unavailable [phone] CHERYLCHARLES Unavailable [phone] Giovanna ARMSTRONG MD Unavailable Unavailable Giovanna ARMSTRONG MD Unavailable Unavailable Giovanna ARMSTRONG MD Unavailable Unavailable Giovanna ARMSTRONG MD Unavailable Unavailable Giovanna ARMSTRONG MD Unavailable Unavailable Giovanna ARMSTRONG MD Unavailable Unavailable Giovanna ARMSTRONG MD Unavailable Unavailable Giovanna ARMSTRONG MD Unavailable Unavailable Giovanna ARMSTRONG MD Unavailable Unavailable Giovanna ARMSTRONG MD Unavailable Unavailable Giovanna ARMSTRONG MD Unavailable Unavailable Giovanna ARMSTRONG MD Unavailable Unavailable Giovanna ARMSTRONG MD Unavailable Unavailable Giovanna ARMSTRONG MD Unavailable Unavailable Giovanna ARMSTRONG MD Unavailable Unavailable Giovanna ARMSTRONG MD Unavailable Unavailable Giovanna ARMSTRONG MD Unavailable Unavailable Giovanna ARMSTRONG MD Unavailable Unavailable Giovanna ARMSTRONG MD Unavailable Unavailable Giovanna ARMSTRONG MD Unavailable Unavailable Giovanna ARMSTRONG MD Unavailable Unavailable Giovanna ARMSTRONG MD Unavailable Unavailable PATTI, E SUPA MD Unavailable Unavailable PATTI, E SUPA MD Unavailable Unavailable PATTI, E SUPA MD Unavailable Unavailable PATTI, E SUPA MD Unavailable Unavailable PATTI, E SUPA MD Unavailable Unavailable PATTI, E SUPA MD Unavailable Unavailable PATTI, E SUPA MD Unavailable Unavailable PATTI, E SUPA MD Unavailable Unavailable PATTI, E SUPA MD Unavailable Unavailable PATTI, E SUPA MD Unavailable Unavailable PATTI, E SUPA MD Unavailable Unavailable PATTI, E SUPA MD Unavailable Unavailable PATTI, E SUPA MD Unavailable Unavailable PATTI, E SUPA MD Unavailable Unavailable PATTI, E SUPA MD Unavailable Unavailable PATTI, E SUPA MD Unavailable Unavailable PATTI, E SUPA MD Unavailable Unavailable PATTI, E SUPA MD Unavailable Unavailable PATTI, E SUPA MD Unavailable Unavailable PATTI, E SUPA MD Unavailable Unavailable PATTI, E SUPA MD Unavailable Unavailable PATTI, E SUPA MD Unavailable Unavailable PATTI, E SUPA MD Unavailable Unavailable PATTI, E SUPA MD Unavailable Unavailable PATTI, E SUPA MD Unavailable Unavailable PATTI, E SUPA MD Unavailable Unavailable PATTI, E SUPA MD Unavailable Unavailable PATTI, E SUPA MD Unavailable Unavailable PATTI, E SUPA MD Unavailable Unavailable PATTI, E SUPA MD Unavailable Unavailable PATTI, E SUPA MD Unavailable Unavailable PATTI, E SUPA MD Unavailable Unavailable PATTI, E SUPA MD Unavailable Unavailable PATTI, E SUPA MD Unavailable Unavailable PATTI, E SUPA MD Unavailable Unavailable PATTI, E SUPA MD Unavailable Unavailable Re-disclosure Warning The records that you are about to access may contain information from federally-assisted alcohol or drug abuse programs. If such information is present, then the following federally mandated warning applies: This information has been disclosed to you from records protected by federal confidentiality rules (42 CFR part 2). The federal rules prohibit you from making any further disclosure of this information unless further disclosure is expressly permitted by the written consent of the person to whom it pertains or as otherwise permitted by 42 CFR part 2. A general authorization for the release of medical or other information is NOT sufficient for this purpose. The Federal rules restrict any use of the information to criminally investigate or prosecute any alcohol or drug abuse patient.The records that you are about to access may contain highly sensitive health information, the redisclosure of which is protected by Article 27-F of the [facility] Public Health law. If you continue you may have access to information: Regarding HIV / AIDS; Provided by facilities licensed or operated by the [facility] Office of Mental Health; or Provided by the [facility] Office for People With Developmental Disabilities. If such information is present, then the following [facility] mandated warning applies: This information has been disclosed to you from confidential records which are protected by state law. State law prohibits you from making any further disclosure of this information without the specific written consent of the person to whom it pertains, or as otherwise permitted by law. Any unauthorized further disclosure in violation of state law may result in a fine or long-term sentence or both. A general authorization for the release of medical or other information is NOT sufficient authorization for further disc losure. Family History Family Member Name Family Member Gender Family Member Status Date o f Status Description Data Source(s) Unknown Unknown Problem [facility] ([facility] Unknown Female Problem [facility] ([facility]) Encounters Encounter Providers Location Date Indications Data Source(s ) Outpatient Attender: SUPA Murrietaer: SUPA DAVALOS MD 08/20/2021 12:00:00 AM [facility] Outpatient Attender: SUPA ARMSTRONG MD 08/20/2021 12:00:00 AM [facility] Outpatient [address], [facility] [id number] 08/13/2021 12:00:00 AM EDT eCW1 ([facility]) Outpatient Attender: CHARLES LUNA Main Office 07/14/2021 09:30:00 A M EDT [facility] ([facility]) Outpatient Attender: Jessy Mcgregor [facility] Main Office 05/30/2021 10:45:00 AM EDT [facility] ([facility]) Outpatient Attender: JOSE BANDA [employer] [facility] 05/12/2021 09:30:00 AM EDT [facility] ([facility]) Outpatient Attender: JOSE BANDA [employer] [facility] 04/18/2021 11:30:00 AM EDT [facility] ([facility]) Outpatient Attender: SUPA Murrietaer: SUPA DAVALOS MD 08/14/2020 12:00:00 AM [facility] Outpatient Attender: SUPA ARSMTRONG MD [id number] 07/18 12:00:00 AM EDT - 08/14/2020 11:46:28 AM EDT Asymptomatic menopausal state [facility] Asymptomatic menopausal state Outpatient Attender: SUPA ARMSTRONG MDReferrer: SUPA DAVALOS MD 08/14/2020 12:00:00 AM [facility] Outpatient Attender: SUPA ARMSTRONG MDReferrer: SUPA DAVALOS MD 08/13/2020 12:00:00 AM [facility] Outpatient Attender: SUPA ARMSTRONG MDReferrer: SUPA DAVALOS MD 08/13/2020 12:00:00 AM [facility] Outpatient Attender: SUPA ARMSTRONG MD 08/13/2020 12:00:00 AM [facility] Medications Medication Brand Name Start Date Product Form Dose Route Admi nistrative Instructions Pharmacy Instructions Status Indications Reaction Description Data Source(s) Diazepam 5 MG Oral Tablet [Valium] Valium 08/21/2021 12:00:00 AM EDT ORAL active [facility] ([facility]) Injection Intralesional Up To 7 07/14/2021 12:00:00 AM EDT completed [facility] ([facility]) Medication administered onsite Clobetasol Propionate 0.5 MG/ML Topical Solution Clobetasol Propionate 05/30/2021 12:00:00 AM EDT active [facility] ([facility]) Estradiol 0.1 MG/ML Vaginal Cream Estradiol 0.1 MG/GM Vaginal Cream (ESTRACE) Estradiol 0.1 MG/GM Vaginal Cream (ESTRACE) 08/14/2020 12:00:00 AM EDT active Menopause 1 gram per vagina twice a we [facility] Menopause Estradiol 0.1 MG/ML Vaginal Cream estradiol (ESTRACE) 0.1 MG/GM vaginal cream estradiol (ESTRACE) 0.1 MG/GM vaginal cream 07/12/2018 12:00:00 AM EDT aborted Menopause 1 gram per vagina twice a we [facility] Menopause Insurance Providers Payer name Policy type / Coverage type Policy ID Covered alliance party ID Covered alliance party's relationship to hill Policy [place] Plan Information POMCO [id number] SP [id number] POMCO U [id number] Self [id number] UMR U [id number] Self [id number] UMR F [id number] SELF [id number] UMR F [id number] SELF [id number] UMR F [id number] SELF [id number] [facility] (O) [id number] Self [id number] [facility] Health Maintenance Organization (HMO) [id number] Self [id number] [employer]OM[employer] PPO O [id number] [facility] [id number] [facility] [id number] S [id number] R [facility] [id number] SP [id number] [facility] [id number] SP [id number] UMR O [id number] S [id number] [facility] Health Maintenance Organization (O) [id number] Self [id number] [facility] Commercial [id number] Self [id number] [facility] [id number] Self [id number] Problems, Conditions, and Diagnoses Code Display Name Description Problem Type Effective Dates Data Source(s) Z12.31 Encounter for screening mammogram for ma lignant neoplasm of breast Encounter for screening mammogram for malignant neoplasm of breast Diagnosis 08/14/2020 10:23:26 AM [facility] Z01.419 Encounter for gynecological examination (general) (routine) without abnormal findings Encounter for gynecological examination (general) (routine) without abnormal findings Diagnosis 08/14/2020 10:23:26 AM [facility] Z78.0 Asymptomatic menopausal state Asymptomatic menopausal state Diagnosis 08/14/2020 10:23:[address] [facility] N28.89 Renal mass Renal mass Problem 08/13/2021 12:00:00 AM ED T eCW1 ([facility]) N28.89 [id number] Left renal mass Problem 08/13/2021 12:00:00 AM EDT eCW1 ([facility]) Surgeries/Procedures Procedure Description Date Indications Data Source(s) INJECTION INTRALESIONAL UP TO & INCLUD 7 LESIONS 07/14 12:00:00 AM EDT [facility] ([facility]) OFFICE OUTPATIENT VISIT 25 MINUTES 07/14/2021 12:00:00 AM EDT [facility] ([facility]) DESTRUCTION BENIGN LESIONS UP TO 14 05/30/2021 12:00:0 0 AM EDT [facility] ([facility]) OFFICE OUTPATIENT NEW 45 MINUTES 05/30/2021 12:00:00 A M EDT [facility] ([facility]) OFFICE OUTPATIENT VISIT 15 MINUTES 05/12/2021 12:00:00 AM EDT [facility] ([facility]) OFFICE OUTPATIENT NEW 20 MINUTES 04/18/2021 12:00:00 A M EDT [facility] ([facility]) MAMMO DIGITAL SCREENING BILATERAL G0202 <td>MAMMO DIGI SOILA SCREENING BILATERAL G0202</td><td>Routine</td><td>08/14/2020 9:50 AM EDT</td><td> Screening mammogram, encounter for</td><td> </td> 08/14/2020 09:50:57 AM EDT Screening mammogram, encounter for [facility] Screening mammogram, encounter for Results ID Date Data Source [id number] 08/20/2021 12:16:00 PM EDT [facility] ([facility]) Name Value Range Interpretation Code Description Data Audrey rce(s) Supporting Document(s) Bacteria identified in Urine by Culture Laboratory test result [facility] ([facility]) FULL REPORT IN LAB NOTES (eCW and Medent ). NO GROWTH ID Date Data Source [id number] 08/20/2021 12:16:00 PM EDT [facility] ([facility]) Name Value Range Interpretation Code Description Data Audrey rce(s) Supporting Document(s) Color, Urine Laboratory test result MEDE NT ([facility]) PH,Urine 5.0 units 5.0-9.0 [facility] [facility]) Appearance, Urine Laboratory test result [facility] ([facility]) Specific [place] Urine Auto 1.014 1.002-1.035 [facility] ([facility]) Glucose, Urine (Ua) Auto Laboratory test result [facility] ([facility]) Protein, Urine Auto Laboratory test result [facility] ([facility]) Ketone, Urine Auto Laboratory test result [facility] ([facility]) Bilirubin, Urine Auto Laboratory test result [facility] ([facility]) Urobilinogen, Urine Auto 0.2 mg/dL 0.0-2.0 MEDEN T ([facility]) Leukocyte Esterase, Urine Auto Laboratory test result [facility] ([facility]) Nitrite, Urine Auto Laboratory test result [facility] ([facility]) Blood, Urine Blood Laboratory test result [facility] ([facility]) RBC, Urine Auto 1 /HPF 0-3 [facility] ([facility]) Bacteria, Urine Auto Laboratory test result [facility] ([facility]) WBC, Urine Auto 0 /HPF 0-3 [facility] ([facility]) Hyaline Cast, Urine Auto 0 /LPF 0-1 MEDEN T ([facility]) Mucus, Urine Laboratory test result MEDE NT ([facility]) Squamous Epithelial Cell Ur AU 0 /HPF 0-6 [facility] ([facility] ID Date Data Source [id number] 08/20/2021 12:16:00 PM EDT [facility] ([facility] Name Value Range Interpretation Code Description Data Audrey rce(s) Supporting Document(s) Prothrombin Time 12.7 s 12.7-14.5 [facility] ([facility]) Inr 0.91 [facility] ([facility]) THERAPUTIC HUMAN INR VALUES INDICATIONS NORMAL RANGES PROPHYLAXIS/TREATMENT OF: VENOUS THROMBOSIS 2.0-3.0 PULMONARY EMBOLISM 2.0-3.0 PREVENTION OF SYSTEMIC EMBOLISM FROM: TISSUE HEART VALVES 2.0-3.0 ACUTE MYOCARDIAL INFARCTION 2.0-3.0 VALVULAR HEART DISEASE 2.0-3.0 ATRIAL FIBRILLATION 2.0-3.0 MECHANICAL VALVES(HIGH RISK) 2.5-3.5 RECURRENT MYOCARDIAL INFARCTION 2.5-3.5 Partial Thromboplastin Time 30.8 s 25.9-37.0 ME DENT ([facility]) ID Date Data Source [id number] 08/20/2021 12:14:00 PM EDT [facility] ([facility]) Name Value Range Interpretation Code Description Data Audrey rce(s) Supporting Document(s) Cholesterol [Mass/volume] in Serum or Plasma 194 mg/dL 131-200 [facility] ([facility]) Cholesterol in HDL [Mass/volume] in Serum or Plasma 46 mg/dL 35-60 [facility] ([facility]) Triglyceride [Mass/volume] in Serum or Plasma 92 mg/dL 30-150 [facility] ([facility]) Cholesterol in LDL [Mass/volume] in Serum or Plasma by calcu lation 130 CALC 50-159 [facility] ([facility]) ID Date Data Source [id number] 08/20/2021 12:14:00 PM EDT [facility] ([facility]) Name Value Range Interpretation Code Description Data Audrey rce(s) Supporting Document(s) Urea nitrogen [Mass/volume] in Serum or Plasma 17 mg/dL 7-18 [facility] ([facility]) Glucose [Mass/volume] in Serum or Plasma 86 mg/dL 74-99 [facility] ([facility]) 100-125 mg/dL PRE-DIABETES/FASTING >126 mg/dL DIABETES/FASTING Potassium [Moles/volume] in Serum or Plasma 4.3 meq/L 3.5-5.1 [facility] ([facility]) Creatinine 0.6 mg/dL 0.6-1.3 [facility] Sodium [Moles/volume] in Serum or Plasma 141 meq/L 136-145 [facility] ([facility]) Carbon dioxide, total [Moles/volume] in Serum or Plasma 30 meq/L 21 -32 [facility] ([facility]) Calcium [Mass/volume] in Serum or Plasma 9.2 mg/dL 8.5-10.1 [facility] ([facility]) Chloride [Moles/volume] in Serum or Plasma 104 meq/L 98-107 [facility] ([facility]) Alkaline phosphatase isoenzyme [Units/volume] in Serum or Pl asma 102 mg/dL 46-116 [facility] ([facility]) Total Bilirubin 0.5 mg/dL 0.2-1.0 [facility] ([facility]) Aspartate aminotransferase [Enzymatic activity/volume] in Serum or Plasma 17 U/L 15-37 [facility] ([facility] ) Proteinase 3 Ab [Units/volume] in Serum 7.8 g/dL 6.4-8.2 [facility] ([facility]) Alanine aminotransferase [Enzymatic activity/volume] in Seru m or Plasma 21 U/L 12-78 [facility] ([facility]) Albumin [Mass/volume] in Serum or Plasma 3.9 g/dL 3.4-5.0 [facility] ([facility]) A/G Ratio 1.00 CALC 1.00-1.90 [facility] [facility] Glomerular filtration rate/1.73 sq M pre dicted among blacks [Volume Rate/Area] in Serum or Plasma by Creatinine-based formula (MDRD) Laboratory test result [facility] ([facility]) <content>CHRONIC KIDNEY DISEASE STAGING PER NKF</content>
<content></content>
<content>STAGE I & II GFR >= 60 NORMAL TO MILDLY DECREASED</content>
<content>STAGE III GFR 30-59 MODERATELY DECREASED</content>
<content>STAGE IV GFR 15-29 SEVERELY DECREASED</content>
<content>STAGE V GFR <15 VERY LITTLE GFR LEFT</content>
<content>ESRD GFR <15 ON SPECIAL EVENTS DRIVER</content>
<content></content> Glomerular filtration rate/1.73 sq M pre dicted among non-blacks [Volume Rate/Area] in Serum or Plasma by Creatinine-based formula (MDRD) Laboratory test result [facility] ([facility] ID Date Data Source [id number] 08/20/2021 12:14:00 PM EDT [facility]) Name Value Range Interpretation Code Description Data Audrey rce(s) Supporting Document(s) Erythrocytes [#/volume] in Blood by Automated count 5.31 x10*6/UL 4.2 0-6.30 [facility] ([facility]) Leukocytes [#/volume] in Blood by Automated count 5.1 x10*3/UL 4.1-10 .9 [facility] ([facility]) Hemoglobin [Mass/volume] in Blood 14.7 g/dL 12.0-18.0 [facility] ([facility]) Hematocrit [Volume Fraction] of Blood by Automated count 44.0 % 3 7.0-51.0 [facility] ([facility]) MCV 82.7 fL 80.0-97.0 [facility] ([place] [facility]) Erythrocyte distribution width [Ratio] by Automated count 13.7 % 11.6-13.7 [facility] ([facility]) MCH 27.6 pg 26.0-32.0 [facility] [facility] MCHC 33.4 g/dL 31.0-38.0 [facility] [facility] Lymph % 13.0 % 10.0-58.5 [facility] [facility] Platelets [#/volume] in Blood by Automated count 219 x10*3/UL 140-440 [facility] ([facility]) MPV 8.2 FL 7.8-11.0 [facility] [facility] Neut % 84.0 % 37.0-92.0 [facility] [facility] Mid % 3.0 % 1.7-9.3 [facility] [facility] Lymph # 0.6 x10*3/UL 0.6-4.1 [facility] ([facility]) Mid # 0.2 x10*3/UL 0.1-0.6 [facility] ([facility]) Neut # 4.3 x10*3/UL 2.0-7.8 [facility] ([facility]) ID Date Data Source [id number] 08/15/2020 11:03:59 AM EDT [facility] DEXA HIP AND OR SPINE [id number] RESULTI nterpreted by:Quang Read MDHISTORY: 60-year-old female presents for evaluation of bone mineral density.TECHNIQUE: Quantitative assessment of bone mineral density was obtained with dual energy x- ray technique with the Hologic scanner. Imaging was performed over the lumbar spine and hip.The World Health Organization criteria for bone mineral density will be utilized. Normal range is anything above one standard deviation below the mean. Osteopenia is between 2.49 and 1.00 standard deviations below the mean. Osteoporosis is more than 2.50 standard deviations below the mean. FINDINGS: The frontal projection of the lumbar spine demonstrates degenerative osteophytes and a scoliotic curvature which may overestimate the total T score. The total T-score inclusive of L1-L4 is -0.3. This is consistent with a WHO classification of normal and no increased fracture risk. Since the baseline study dated 04/03/2015, there has been a decrease by -9.2% in the bone mineral density, which is significant. At the left hip, the total T-score is -0.8. The T-score of the neck is -2.1. This is consistent with a WHO classification of osteopenia. Compared to the baseline study dated 04/03/2015, there has been an decrease by -15.1% in bone mineral density, which is significant. The FRAX ten- year fracture risk for major osteoporotic fracture is 15%, hip fracture 2.0%, based on reported risk factors: US (), neck BMD 0.619, BMI 39.2.This document has been electronically signed by Quang Read MD on 08/15/2020 11:01 AM Name Value Range Interpretation Code Description Data Audrey rce(s) Supporting Document(s) ID Date Data Source [id number] 08/14/2020 12:44:45 PM EDT [facility] Name Value Range Interpretation Code Description Data Audrey rce(s) Supporting Document(s) Progress Note [facility] FFHBUh2cMhFVXyGq35/XBWzxLGJkc3WsMSsgFZb8GWdoEYSnN0CdXGM0zH8jNTQ0UVrNDmKwZpRgYPTh lbm [file] ICAgICAgICAgICAgICAgICAgICAgICAgICAgICAgICAgICAgICAgICAgICAgICAgICAgICAgICAgICAg ICAgICAgICAgICAgICAgICAgICAgICAgICAgICAgICAgDQogICAgICAgICAgICAgICAgICAgICAgICAg ICAgICAgICAgICAgICAgICAgICAgICAgICAgICAgIC AgICAgICAgICAgICAgICAgICAgICAgICAgICAgICAgICAgICAgICAgICAgDQogICAgICAgICAgICAgIC AgICAgICAgICAgICAgICAgICAgICAgICAgICAgICAgICAgICAgICAgICAgICAgICAgICAgICAgICAgIC AgICAgICAgICAgICAgICAgICAgICAgICAgDQogICAg ICAgICAgICAgICAgICAgICAgICAgICAgICAgICAgICAgICAgICAgICAgICAgICAgICAgICAgICAgICAg ICAgICAgICAgICAgICAgICAgICAgICAgICAgICAgICAgICAgDQogICAgICAgICAgICAgICAgICAgICAg ICAgICAgICAgICAgICAgICAgICAgICAgICAgICAgIC AgICAgICAgICAgICAgICAgICAgICAgICAgICAgICAgICAgICAgICAgICAgICAgDQogICAgICAgICAgIC AgICAgICAgICAgICAgICAgICAgICAgICAgICAgICAgICAgICAgICAgICAgICAgICAgICAgICAgICAgIC AgICAgICAgICAgICAgICAgICAgICAgICAgICAgDQog ICAgICAgICAgICAgICAgICAgICAgICAgICAgICAgICAgICAgICAgICAgICAgICAgICAgICAgICAgICAg ICAgICAgICAgICAgICAgICAgICAgICAgICAgICAgICAgICAgICAgDQogICAgICAgICAgICAgICAgICAg ICAgICAgICAgICAgICAgICAgICAgICAgICAgICAgIC AgICAgICAgICAgICAgICAgICAgICAgICAgICAgICAgICAgICAgICAgICAgICAgICAgDQogICAgICAgIC AgICAgICAgICAgICAgICAgICAgICAgICAgICAgICAgICAgICAgICAgICAgICAgICAgICAgICAgICAgIC AgICAgICAgICAgICAgICAgICAgICAgICAgICAgICAg DQogICAgICAgICAgICAgICAgICAgICAgICAgICAgICAgICAgICAgICAgICAgICAgICAgICAgICAgICAg OUEcKRNtPRVnUARaMTSpVXXpFOShKALwXDZoMVGsSVQiRFZoIRMyMYBcZFk7E5mhIDYbDEYnYG3tCIq0 Jz8+TWsFLwNdBZK3rwPujL7LJT4ms6PrHXgpXKZmd7 ChMOl8DD3AMJSeXAsfOP2AJRutty5INTFdPDDpcLEDo4loSmMhJJW9RCGjLtziHN4TJTPdL5jndiSoBQ EgUVVYAFjvPATSHQcrSFSYKWOdCKHnEnIvKrTjBDDhAWZbASBSFW9OHiShT4QpcC37SJCDSu4+DQplbm GnRciIRuEmTQWme3CeRMz8RC5JIAYaMotwn2ZhEfUm URSIZAruMO2WZNW8CBOoQKUxMh7SNZSxH230wwTmTU1NPo0YFmDqII6wzg3FQhYqWJOoNgkIGge9AGuw SE0QnEFcSQoCnm8hfaEstaVVj5BttlOrrZBSCYP5MS3lTWAtJHqanHLuKIBQUCHshNT2SfSfQzOvWzRr HSM9XoYrSO0iVGrxCF7VMZY3KHukWLOkRATuA6jWPb AuCYHiIfXtzTzaCA7EIlQxD6YqllBcyZQgToBaCREEAx2+ORjxvdEyKmdXLtG1ZMEji4UgHCs1ON7SHP CqRYqcRY6ADXPcoK8fQAkaAN5XTyDpXVOwSGRKUtKyA45ukWHyGAx3N4ZoQsFtUHBqGbjcJHYgPTqzJt FtZXMgWyBdDQogID4+ID4+UDfrGF3HNYgzvtTtYNDw Ew4ZNWVqRMXvAJ5nBCWlPEKcC9U7dLncFISMCtCjZ2isfedfGY1pIWGqM619hFbuatYvRDVwVMDeLl0Z ITClPBY5YCUieTBwBmZeEPFDKCmkTD3CuJJfOXU4dM8iQQtfYEJzRYSzQ9nJEaBseLixDG96fKehcdYg bCBdDQo+Pr3QGD5qo0TeQMy2cgAbHPtbRIP6XTroKT XcIYYxQPWaJLC5MRC7AEIWOyQgNGVmOYDmXPphWMMdLUSnft3KFJPrONJiDFA5TBOqYLAdIYPsMBndDZ YoUPC6HZNbFVXoRTPhRF0MAxZcFAOqYQOaDIreHGXhCUVcnn5DNIGzFNUeOlraGLIaKJEiWINdNChoIB IhUBG2NPO8TLKdKSCfRW8ZHeSqRHZbMIP1IMXbBDPy LYVbwl2QSKBfIBXpFzI0DYGeWSDoMUBmBCufYCYkODX9TNWcVUGlQAPvWJ4LTpVeMFSpXSmdDDfwVSCr AGAfyz5BRCRnTIAbDNL3BXPdOIRqVCSsNLvrJDQpSZWvNTAfVNZwWEBaWI1MDvNyLZBwUNM3FzNkEBGw KGSvyg2QOMMlBWWvHNuqRFIwGFPhHGPhQBmdUJSaSV W7PIh6ZBIxXZZyUZ9ICnRiTQNfVFd8NGElGDHtBQMthk7WBDWaMJSeVQl8UJMrSZRoJCOdTWivIJEhOZ E2DAXzMJUeJEFyIR7QJrUpRCXeEEscNkTeGPEqHKMrps8JSNJuAJQqJHY4McAxQHWbSRKsVBbdJOFxFJ IoGeb2GGXeKNZjFJ7ZXxKuOZVcQyT8IuCqYCWuDRXi wx0ICDXnWJZsDZpyAqCnKOLnTVFbQZsdALFiMBIyOrR8GEXaGXJpJC7BOhXzOZOwRiI8NorhFIKxQZWa sv6MJJPfRAXiIfD0FzKjGXGvIKEhMJfpDSSpDHGjYODeJZDlRJGyAV4JOmFyDFOgZkZ3FjolOQRcSQIp wv6EKZDoCBKoLra6DSIiCKShXCBtNWteWTRhMNU1AK UnZNBxFSYcKP1IVpJnVILsSoS4OkAdFWBuXYRyxb2KQSNbKBOhLgUkHZFzGYGqTOZhHXxoUWEuOKZ7RY TiCHZbLCUmBD8UXxJvBUFgVyUfUXNsXHOlPHSner0FgBLhqAdpka0UHSeXCt0TcJmkUIE5OFolVg6vzO UdHPIzSEXGNn3YzqNdNLZlWIDFVXfqYUWrMRLyBiGo WkQ3QLH0IjCxRUD4X5N8TIMiTayaQiD8UEx4RrA7P8EnLPL6Bda8LKtzLvTlChJ0DUPkVfOqNDMnSUW4 ODc+YR5kDXm+Jx0Wd3LcrmR1ouSlWZxnEiM7We4ETBWIA7JTZy== ID Date Data Source [id number] 08/14/2020 10:29:17 AM T [facility] MAMMO DIGITAL SCREENING BILATERAL [id number] INAL RESULTInterpreted by:Wendy Traore MDBILATERAL SCREENING DIGITAL MAMMOGRAM WITH COMPUTER-AIDED DETECTIONINDICATION: Screening mammogram.COMPARISON: Prior mammograms dated 07/12/2018, 04/27/2017, 04/24/2016, 04/03/2015, 04/03/2014, and additional prior mammograms dating back to 03/14/2009LAST CLINICAL BREAST EXAM: [address] [place] [address] [facility] [place] Risk Assessment Jackie Model5-Year RiskPatient risk: 1.2%Average risk: 1.9% Lifetime RiskPatient risk: 5.7% Average risk: 8.6%TECHNIQUE: Bilateral craniocaudal and mediolateral oblique digital mammograms were obtained with tomosynthesis. Computer-aided detection was utilized. FINDINGS: There are scattered areas of fibroglandular density. Density category B. No suspicious masses, suspicious calcifications, or areas of architectural distortion are seen in either breast. No suspicious interval change from prior mammograms. IMPRESSION:No mammographic evidence of malignancy.BI-RADS 1 - NegativeRecommendation: Annual screening mammogram.This document has been electronically signed by Wendy Traore MD on 08/14/2020 10:27 AM Name Value Range Interpretation Code Description Data Audrey rce(s) Supporting Document(s) Procedure Social History Code Duration Value Status Description Data Source(s ) Smoking 08/13/2021 12:00:00 AM EDT Former Smoker completed Former Smoker eCW1 ([facility]) Alcohol intake 08/14/2020 12:00:00 AM EDT Current drinker of al cohol (finding) completed Current drinker of alcohol (finding) [facility] Tobacco use and exposure 08/14/2020 12:00:00 AM EDT Never used co mpleted Never used [facility] Smoking 08/14/2020 12:00:00 AM EDT Former smoker completed Former smoker [facility] Vital Signs ID Date Data Source UNK Name Value Range Interpretation Code Description Data Source(s) Body weight 223.00 [lb_av] 223.00 [lb_av] MEDEN T ([facility]) Oxygen saturation in Arterial blood by Pulse oximetry 99 % 99 % [facility] ([facility]) Body mass index (BMI) [Ratio] 33.9 kg/m2 33.9 k g/m2 [facility] Systolic blood pressure 138 mm[Hg] 138 mm[Hg] M EDENT ([facility]) Body height 68 [in_i] 68 [in_i] [facility] ([facility]) 5'8" Heart rate 74 /min 74 /min [facility] ([facility]) Diastolic blood pressure 78 mm[Hg] 78 mm[Hg] [facility] ([facility]) Body height 68 [in_i] 68 [in_i] [facility] ([facility]) 5'8" Body mass index (BMI) [Ratio] 34.2 kg/m2 34.2 k g/m2 [facility] ([facility]) Heart rate 77 /min 77 /min MEDENT ([facility]) Diastolic blood pressure 80 mm[Hg] 80 mm[Hg] MEDENT ([facility]) Systolic blood pressure 126 mm[Hg] 126 mm[Hg] M EDENT ([facility]) Body weight 225.00 [lb_av] 225.00 [lb_av] MEDEN T ([facility]) Body weight 231.4 [lb_av] 231.4 [lb_av] eCW1 ([facility]) Body weight 104.96 kg 104.96 kg eCW1 ([facility]) Body height 67 [in_i] 67 [in_i] eCW1 ([facility]) Body mass index (BMI) [Ratio] 36.24 kg/m2 36.24 kg/m2 W1 ([facility]) Heart rate 77 /min 77 /min eCW1 ([facility]) Respiratory rate 18 /min 18 /min eCW1 ([facility]) Body temperature 98.6 [degF] 98.6 [degF] eCW1 ( [facility]) Systolic blood pressure 132 mm[Hg] 132 mm[Hg] e CW1 ([facility]) Diastolic blood pressure 84 mm[Hg] 84 mm[Hg] eCW1 ([facility]) Systolic blood pressure 125 mm[Hg] 125 mm[Hg] M EDENT ([facility]) Diastolic blood pressure 65 mm[Hg] 65 mm[Hg] MEDENT ([facility]) Respiratory rate 18 /min 18 /min MEDENT ( [facility]) Body height 67 [in_i] 67 [in_i] MEDENT ([facility]) 5'7" Systolic blood pressure 130 mm[Hg] 130 mm[Hg] M EDENT ([facility]) Diastolic blood pressure 80 mm[Hg] 80 mm[Hg] MEDENT ([facility]) Body weight 250.00 [lb_av] 250.00 [lb_av] MEDEN T ([facility]) Respiratory rate 18 /min 18 /min MEDENT ( [facility]) ID Date Data Source [id number] 08/14/2020 12:10:23 PM [facility] Name Value Range Interpretation Code Description Data Source(s) WEIGHT RECORDED 241 lb 241 lb [facility] Body height Measured 67 in 67 in [facility] Patient Treatment Plan of Care Planned Activity Planned Date Details Description Data Source (s) Estradiol 0.1 MG/ML Vaginal Cream 08/14/2020 12:00:00 AM [facility] Estradiol 0.1 MG/ML Vaginal Cream 07/12/2018 12:00:00 AM [facility]
[2021-09-02] MEDS ORDERED: LIDOCAINE 1% SDV 30ML VIAL As Ordered ONE (07:12)
[2021-09-02] MEDS ORDERED: BUPIVACAINE HCL 0.25% 30ML VIAL As Ordered ONE (07:12)
[2021-09-02] MEDS ORDERED: PERCOCET 5MG/325MG TAB PO PRN (07:25)
[2021-09-02] MEDS ORDERED: PHENYLephrine 500MCG 5ML (100MCG/ML) SYRINGE As Ordered ONE (08:09)
[2021-09-02] MEDS ORDERED: ROCURONIUM BROMIDE 50 MG/5 ML VIAL As Ordered ONE ×2 (08:09→10:17)
[2021-09-02] MEDS ORDERED: LIDOCAINE 2% 100MG/5ML SDV (FOR ANES.) As Ordered ONE (08:09)
[2021-09-02] MEDS ORDERED: SUGAMMADEX SODIUM 500 MG/5 ML VIAL (BRIDION) As Ordered ONE (08:09)
[2021-09-02] MEDS ORDERED: ePHEDrine SULFATE 25 MG/5 ML(5MG/ML) SYRINGE As Ordered ONE (08:09)
[2021-09-02] MEDS ORDERED: propofoL 200 MG/20 ML VIAL As Ordered ONE (08:09)
[2021-09-02] MEDS ORDERED: fentaNYL 250 MCG/5 ML INJECTION (J3010) As Ordered ONE (08:09)
[2021-09-02] MEDS ORDERED: MIDAZOLAM INJ 2MG/2ML VIAL (J2250 PER 1MG) As Ordered ONE (08:09)
[2021-09-02] MEDS ORDERED: ONDANSETRON 4MG/2ML VIAL As Ordered ONE (08:09)
[2021-09-02] MEDS ORDERED: METOCLOPRAMIDE INJ 10MG/2ML VIAL (J2765 PER 1) As Ordered ONE (08:09)
[2021-09-02] MEDS ORDERED: DESFLURANE 240 ML INHALANT As Ordered ONE (08:09)
[2021-09-02] MEDS ORDERED: dexameTHASONE 4 MG/ML 1ML VIAL (J1100 PER 1MG) As Ordered ONE (08:10)
[2021-09-02] MEDS ORDERED: HYDROmorphone HCL 2 MG/ML 1ML VIAL As Ordered ONE (08:17)
[2021-09-02] MEDS ORDERED: fentaNYL 100 MCG/2 ML INJECTION (J3010) As Ordered ONE (11:14)
[2021-09-02] MEDS ORDERED: ceFAZolin 1GM VIAL (J0690 PER 500MG) As Ordered ONE (12:59)
[2021-09-02] MEDS ORDERED: LR 1,000 ML IV SCH (14:10)
[2021-09-02] MEDS ORDERED: oxyCODONE 5MG TAB PO PRN (14:10)
[2021-09-02] MEDS ORDERED: fentaNYL 100 MCG/2 ML INJECTION (J3010) IV PRN (14:10)
[2021-09-02] MEDS ORDERED: ONDANSETRON 4MG/2ML VIAL IV PRN (14:10)
--- NOTE | 2021-09-02 14:25 | ROOPDOC ---
[facility] Report Of Operation Report of Operation DATE OF PROCEDURE: 09/02/21 PREPROCEDURE DIAGNOSIS: Left Renal Neoplasm. POSTPROCEDURE DIAGNOSIS: Left Renal Neoplasm. PROCEDURE: Left robotic-assisted laparoscopic radical nephrectomy (adrenal- sparing). SURGEON: Steve Oliver MD TECHNICAL DATA ANALYST: Avril Diaz NP ANESTHESIA: General OPERATIVE INDICATIONS: This is a 61 year-old female found to have a 10cm enhancing solid left renal mass concerning for renal cell carcinoma. It was recommended that she undergo the above procedure for treatment. DESCRIPTION OF PROCEDURE: The patient was brought to the operating room where general anesthesia was induced. Prophylactic antibiotics were infused. A Mata catheter was placed under sterile conditions. Next, the patient was placed in the right lateral decubitus position. All pressure points were appropriately padded and an axillary roll was placed. We then secured the patient to the table with tape. Her abdomen was then prepped and draped in the usual sterile fashion. Next, an 8mm incision was made in line with the 11th rib along the lateral border of the rectus. Pneumoperitoneum was achieved with a Veress needle. Next, an 8mm port was placed for the camera. The camera was inserted and there were no injuries from the Veress needle or initial port placement. An 8mm port was then placed off the costal margin for the left hand robotic port. At this point, two right hand robotic ports were then placed with one between the anterior superior iliac spine and the hip and the other one just caudal to the camera port. The one just caudal to the camera port was a 12mm robotic port. Last the 15 mm assistant federal public defender port was placed inferior and medial to the camera port. The robot was then docked. The large mass was seen extending off the lower pole of the kidney. The left colon was then mobilized medially. The spleen was released off of Gerota's. After mobilizing the left colon completely, we then developed a plane onto the psoas muscle off the lower pole of the kidney. The left gonadal vein was identified and was carried cephalad until the left renal vein was encountered. The hilum was then dissected and 1 artery was identified. It was ligated with 3 Weck clips and then transected, leaving 2 Weck clips on the stay side. The renal vein was then carefully dissected. It was then ligated with a robotic vascular l oad stapler and transected. The kidney was then mobilized and on all sides. The adrenal gland was not involved by the tumor and it was therefore dissected off and spared. The ureter was then ligated with Weck clips and transected in between. The kidney was then completely free. At this point, we checked for hemostasis and hemostasis appeared excellent. Cate hemostatic agent was applied over the hilum. We then placed the left kidney in a large EndoCatch bag for future retrieval. We then undocked the robot and a Miguelangel-Gala fascial closure device was utilized to place a 0-vicryl suture through the fascia of the 15mm port site. This was then tied down. We then extended the incision of the 12mm right hand robotic port site to extract the specimen. We then dissected down through the musculofascial layers and extended the fascia. The muscle was bluntly spread, and we then extracted the specimen through this incision. Once that was done, we checked for hemostasis through the extraction incision and it appeared excellent. The fascia of this incision was then closed with a running #0 Vicryl suture. At this point, the abdomen was then reinsufflated. We looked at the extraction incision, and there was no active bleeding and no abdominal contents were caught within the suture. Once this was done, all the remaining ports were removed and there was no bleeding. Once this was done, all wounds were thoroughly irrigated. The subcutaneous fat of the extraction incision was then closed with interrupted #3-0 Vicryl sutures. We then closed the skin of all incisions using subcuticular #4-0 Monocryl suture. Local anesthetic was then applied and then Dermabond was applied and marked the conclusion of the procedure. The patient was then taken out of the right lateral decubitus position, awakened from anesthesia and transported to the recovery room in stable condition. ESTIMATED BLOOD LOSS: 100mL. COMPLICATIONS: None. SPECIMENS: Left kidney. PLAN: The patient will be admitted to the hospital postoperatively for m onitoring and discharged once her pain is controlled and her kidney function is stable. STEVE OLIVER MD Sep 02, 2021 07:42
[2021-09-02] MEDS: HYDROMORPHONE HCL 0.5 MG/ 0.5 ML SYRINGE (J1170 PER 1) IV PRN ×4 (14:33→14:51)
[2021-09-02 15:00] LABS: HEMATOCRIT 43.4 % (36.0-47.0); HEMOGLOBIN 13.9 g/dl (12.0-15.5); MEAN CORPUSCULAR HEMOGLOBIN 27.7 pg (27.0-33.0); MEAN CORPUSCULAR VOLUME 86.6 fl (80.0-96.0); PLATELET COUNT, AUTOMATED 156 10^3/uL (150-450); RED BLOOD COUNT 5.01 10^6/uL (4.00-5.40); WHITE BLOOD COUNT 9.6 10^3/uL (4.0-10.0)
[2021-09-02 15:20] VITALS: BP 157/100
[2021-09-02 15:24] LABS: BLOOD UREA NITROGEN 15 MG/DL (7-18); GLUCOSE, FASTING 147 MG/DL (70-100)
[2021-09-02 15:25] LABS: CALCIUM LEVEL 8.6 MG/DL (8.8-10.2); CARBON DIOXIDE LEVEL 28 MEQ/L (21-32); CHLORIDE LEVEL 106 MEQ/L (98-107); GLOMERULAR FILTRATION RATE > 60.0 (>45); POTASSIUM SERUM 3.9 MEQ/L (3.5-5.1); SODIUM LEVEL 140 MEQ/L (136-145)
[2021-09-02] MEDS: NS 1,000 ML IV SCH ×2 (15:27→21:20)
[2021-09-02] MEDS: ceFAZolin SOD 1 GM in D5W MINI-BAG PLUS 50 ML IV SCH (15:27)
[2021-09-02] MEDS: DOCUSATE SODIUM 100MG CAPSULE PO SCH ×2 (15:32→21:19)
[2021-09-02 15:50] VITALS: BP 143/77
[2021-09-02 16:20] VITALS: BP 140/76
[2021-09-02 17:20] VITALS: BP 139/77
[2021-09-02 18:20] VITALS: BP 133/84
[2021-09-02] MEDS: PERCOCET 5MG/325MG TAB PO PRN (20:51)
[2021-09-02 22:00] VITALS: BP 131/77
[2021-09-03] MEDS: ceFAZolin SOD 1 GM in D5W MINI-BAG PLUS 50 ML IV SCH (01:08)
[2021-09-03] MEDS: PERCOCET 5MG/325MG TAB PO PRN ×4 (01:10→15:48)
[2021-09-03] MEDS: NS 1,000 ML IV SCH (04:36)
[2021-09-03 06:00] VITALS: BP 109/68
[2021-09-03 06:06] LABS: HEMATOCRIT 39.8 % (36.0-47.0); MEAN CORPUSCULAR HGB CONC 32.7 g/dl (32.0-36.5); MEAN CORPUSCULAR VOLUME 85.6 fl (80.0-96.0); PLATELET COUNT, AUTOMATED 178 10^3/uL (150-450); RED BLOOD COUNT 4.65 10^6/uL (4.00-5.40); WHITE BLOOD COUNT 8.9 10^3/uL (4.0-10.0)
[2021-09-03 06:25] LABS: BLOOD UREA NITROGEN 12 MG/DL (7-18); CALCIUM LEVEL 8.5 MG/DL (8.8-10.2); CARBON DIOXIDE LEVEL 29 MEQ/L (21-32); CHLORIDE LEVEL 105 MEQ/L (98-107); CREATININE FOR GFR 0.83 MG/DL (0.55-1.30); GLOMERULAR FILTRATION RATE > 60.0 (>45); GLUCOSE, FASTING 97 MG/DL (70-100); SODIUM LEVEL 138 MEQ/L (136-145)
--- NOTE | 2021-09-03 07:47 | IPNPDOC ---
Subjective Review oF Systems Chief Complaint The patient is a 61-year-old female admitted with a reason for visit of Left Renal Mass. Events since Last Encounter No acute events o/n. Pain controlled moderately well w/ percocet. Had mild nausea but no vomiting. Has not ambulated yet. No f/c/ns. Objective Physical Examination General Exam: Alert, Cooperative, No Acute Distress ABDOMEN EXAM: Soft, Tenderness (mild), Other (incisions clean/dry/intact) Skin Exam: Nl turgor and temperature Neuro Exam: Normal Speech Psych Exam: Mental status NL, Mood NL Other physical findings catheter draining clear yellow urine Vital Signs/I&O Vital Signs Date Time Temp Pulse Resp B/P (MAP) Pulse Ox O2 Delivery O2 Flow Rate FiO2 09/03/21 06:48 16 Nasal Cannula 2.0 09/03/21 06:00 98.6 74 109/68 (82) 94 I&O- Last 24 Hours up to 6 AM 09/03/21 06:00 Intake Total 5070 ml Output Total 1750 ml Balance 3320 ml Laboratory Data Labs 24H Laboratory Tests 2 09/02/21 14:45: Nucleated Red Blood Cells % (auto) 0.0, Anion Gap 6L, Glomerular Filtration Rate > 60.0, Calcium Level 8.6L 09/03/21 05:29: Nucleated Red Blood Cells % (auto) 0.0, Anion Gap 4L, Glomerular Filtration Rate > 60.0, Calcium Level 8.5L CBC/BMP Laboratory Tests 09/02/21 14:45 09/03/21 05:29 Assessment/Plan Date Seen The patient was seen on 09/03/21. Patient Summary This is a 61 y/o F POD1 s/p L robotic radical nephrectomy. Her Hb is stable at 13. Her Cr is 0.8. Good UOP. Plan/VTE VTE Prophylaxis Ordered?: Yes VTE Exclusion Mechanical Proph: N/A:VTE Prophy Ordered Plan - d/c Mata - d/c IVF - percocet prn pain - strict I/Os - SCDs when in bed - ambulate - incentive spirometry - CLD -> ADAT - possible discharge home later today STEVE OLIVER MD Sep 03, 2021 07:47
[2021-09-03] MEDS: DOCUSATE SODIUM 100MG CAPSULE PO SCH ×2 (09:48→20:17)
[2021-09-03] MEDS: ONDANSETRON 4MG/2ML VIAL IV PRN ×2 (10:58→17:10)
[2021-09-03] MEDS ORDERED: MORPHINE 2 MG/ML 1ML VIAL (J2270) IV PRN (15:30)
[2021-09-03] MEDS: ACETAMINOPHEN TAB 650MG DOSE (2X325MG) PO PRN (20:22)
[2021-09-03 22:00] VITALS: BP 121/77
[2021-09-04] MEDS ORDERED: CALCIUM CARBONATE 500 MG CHEW U/D PO PRN (00:35)
[2021-09-04] MEDS: ACETAMINOPHEN TAB 650MG DOSE (2X325MG) PO PRN ×5 (00:45→22:12)
[2021-09-04 02:00] VITALS: BP 124/74
[2021-09-04 06:00] VITALS: BP 125/74
[2021-09-04 06:41] LABS: HEMATOCRIT 40.9 % (36.0-47.0); HEMOGLOBIN 12.9 g/dl (12.0-15.5); MEAN CORPUSCULAR HGB CONC 31.5 g/dl (32.0-36.5); MEAN CORPUSCULAR VOLUME 88.9 fl (80.0-96.0); PLATELET COUNT, AUTOMATED 164 10^3/uL (150-450)
[2021-09-04 07:04] LABS: BLOOD UREA NITROGEN 11 MG/DL (7-18); CALCIUM LEVEL 8.7 MG/DL (8.8-10.2); CARBON DIOXIDE LEVEL 31 MEQ/L (21-32); CHLORIDE LEVEL 105 MEQ/L (98-107); CREATININE FOR GFR 0.84 MG/DL (0.55-1.30); GLOMERULAR FILTRATION RATE > 60.0 (>45); GLUCOSE, FASTING 90 MG/DL (70-100); POTASSIUM SERUM 4.3 MEQ/L (3.5-5.1); SODIUM LEVEL 139 MEQ/L (136-145)
[2021-09-04] MEDS: DOCUSATE SODIUM 100MG CAPSULE PO SCH ×2 (08:55→20:09)
[2021-09-04 10:00] VITALS: BP 122/68
[2021-09-04] MEDS ORDERED: BISACODYL 10 MG SUPP PR ONE (10:05)
--- NOTE | 2021-09-04 10:11 | IPNPDOC ---
Subjective Review oF Systems Chief Complaint The patient is a 61-year-old female admitted with a reason for visit of Left Renal Mass. Events since Last Encounter Patient notes that her incisional pain is improving. Her main discomfort is from bloating. She has not passed any flatus yet and has not had a BM. She noted mild nausea earlier due to reflux. This has resolved. Has not ambulated much due to discomfort. No f/c/ns. Objective Physical Examination General Exam: Alert, Cooperative, No Acute Distress ABDOMEN EXAM: Soft, Tenderness (mild), Other (incisions clean/dry/intact) Skin Exam: Nl turgor and temperature Neuro Exam: Normal Speech Psych Exam: Mental status NL, Mood NL Vital Signs/I&O Vital Signs Date Time Temp Pulse Resp B/P (MAP) Pulse Ox O2 Delivery O2 Flow Rate FiO2 09/04/21 08:59 92 Room Air 09/04/21 06:00 99.1 81 18 125/74 (91) 1.0 I&O- Last 24 Hours up to 6 AM 09/04/21 06:00 Intake Total 1290 ml Output Total 1450 ml Balance -160 ml Laboratory Data Labs 24H Laboratory Tests 2 09/04/21 06:19: Nucleated Red Blood Cells % (auto) 0.0, Anion Gap 3L, Glomerular Filtration Rate > 60.0, Calcium Level 8.7L CBC/BMP Laboratory Tests 09/04/21 06:19 Assessment/Plan Date Seen The patient was seen on 09/04/21. Patient Summary This is a 61 y/o F POD2 s/p L robotic radical nephrectomy. Her Hb is stable at 12.0. Her Cr is 0.8. Good UOP. Plan/VTE VTE Prophylaxis Ordered?: Yes VTE Exclusion Mechanical Proph: N/A:VTE Prophy Ordered Plan - percocet or tylenol prn pain - wean O2 as tolerated - ambulate - dulcolax suppository - incentive spirometry - SCDs when in bed - regular diet - PT - plan for discharge once patient is weaned off O2, ambulating better, and tolerating PO better STEVE OLIVER MD Sep 04, 2021 10:11
[2021-09-04 14:00] VITALS: BP 124/83
[2021-09-04 18:00] VITALS: BP 130/84
[2021-09-04 21:37] VITALS: BP 121/67
[2021-09-05 02:00] VITALS: BP 112/73
[2021-09-05] MEDS: ACETAMINOPHEN TAB 650MG DOSE (2X325MG) PO PRN ×2 (05:15→09:13)
[2021-09-05 06:00] VITALS: BP 124/80
[2021-09-05 08:05] LABS: HEMATOCRIT 41.3 % (36.0-47.0); HEMOGLOBIN 13.1 g/dl (12.0-15.5); MEAN CORPUSCULAR HEMOGLOBIN 27.7 pg (27.0-33.0); MEAN CORPUSCULAR HGB CONC 31.7 g/dl (32.0-36.5); MEAN CORPUSCULAR VOLUME 87.3 fl (80.0-96.0); PLATELET COUNT, AUTOMATED 175 10^3/uL (150-450); RED BLOOD COUNT 4.73 10^6/uL (4.00-5.40); WHITE BLOOD COUNT 8.4 10^3/uL (4.0-10.0)
--- NOTE | 2021-09-05 08:05 | IPNPDOC ---
Subjective Review oF Systems Chief Complaint The patient is a 61-year-old female admitted with a reason for visit of Left Renal Mass. Events since Last Encounter No acute events o/n. Pain controlled w/ tylenol. Ambulating better. Had 2 BMs yesterday. No n/v. No f/c/ns. Objective Physical Examination General Exam: Alert, Cooperative, No Acute Distress ABDOMEN EXAM: Soft, Tenderness (mild), Other (incisions clean/dry/intact) Skin Exam: Nl turgor and temperature Neuro Exam: Normal Speech Psych Exam: Mental status NL, Mood NL Vital Signs/I&O Vital Signs Date Time Temp Pulse Resp B/P (MAP) Pulse Ox O2 Delivery O2 Flow Rate FiO2 09/05/21 06:00 98.8 77 15 124/80 (95) 95 Nasal Cannula 1.0 I&O- Last 24 Hours up to 6 AM 09/05/21 05:59 Intake Total 895 ml Output Total 3000 ml Balance -2105 ml Laboratory Data Labs 24H Laboratory Tests 2 09/05/21 07:38: CBC/BMP Assessment/Plan Date Seen The patient was seen on 09/05/21. Patient Summary This is a 61 y/o F POD3 s/p L robotic radical nephrectomy. She is doing much better today. As of this morning she has been maintaining her O2 sats w/ o supplemental O2. Morning labs are pending. Plan/VTE VTE Prophylaxis Ordered?: Yes VTE Exclusion Mechanical Proph: N/A:VTE Prophy Ordered Plan - f/u morning labs - tylenol or percocet prn pain - strict I/Os - SCDs in bed - ambulate - discharge home today if morning labs w/i normal limits STEVE OLIVER MD Sep 05, 2021 08:04
[2021-09-05 08:33] LABS: BLOOD UREA NITROGEN 10 MG/DL (7-18); CALCIUM LEVEL 8.9 MG/DL (8.8-10.2); CARBON DIOXIDE LEVEL 31 MEQ/L (21-32); CHLORIDE LEVEL 105 MEQ/L (98-107); CREATININE FOR GFR 0.77 MG/DL (0.55-1.30); GLOMERULAR FILTRATION RATE > 60.0 (>45); GLUCOSE, FASTING 91 MG/DL (70-100); POTASSIUM SERUM 4.1 MEQ/L (3.5-5.1); SODIUM LEVEL 138 MEQ/L (136-145)
[2021-09-05] MEDS: DOCUSATE SODIUM 100MG CAPSULE PO SCH (09:12)
[2021-09-05 10:00] VITALS: BP 122/79
--- NOTE | 2021-09-05 10:14 | DSES ---
DISCHARGE SUMMARY DATE OF ADMISSION: 09/02/2021 DATE OF DISCHARGE: 09/05/2021 ADMISSION DIAGNOSIS: Left renal neoplasm. DISCHARGE DIAGNOSIS: Left renal cell carcinoma. ADMITTING PHYSICIAN: Varun Vilchis MD DISCHARGING PHYSICIAN: Varun Vilchis MD PROCEDURE PERFORMED: Left robotic-assisted laparoscopic radical nephrectomy on 09/02/2021. HISTORY OF PRESENT ILLNESS: This is a 61-year-old female who was found to have very large enhancing and heterogenous left renal mass concerning for malignancy. She underwent the above listed procedure and was admitted postoperatively. HOSPITAL COURSE: The patient was admitted to the hospital after undergoing above listed procedure. On postoperative days 1 and 2 the patient did have difficulty with pain control. This limited her ability to ambulate. Physical therapy was consulted and by postop day 3 three she was ambulating much better. We also had a hard time weaning her off her supplemental oxygen, with each time taking her off her oxygen saturation dropped to mid 80s. On postop day 3 she was maintaining her oxygen saturation in the 90s on room air. Her Mata catheter was removed on postop day 1 and she voided without any difficulty. Her diet was gradually advanced and she was tolerating regular diet by postoperative day 2. She started having return of bowel function on postoperative day 2 and had two bowel movements. Her labs throughout her hospital stay were within normal limits. Her hemoglobin level was stable at around 13 and her serum creatinine was stable between 0.77 and 0.84. She had excellent urine output. By postoperative day 3 she was deemed ready for discharge home. She was discharged home with plan for her to follow up in urology clinic in approximately one week to discuss her pathology results. EDGARDO
[2021-09-05] MEDS ORDERED: SIMETHICONE 80MG CHEW TAB PO PRN (11:00)
== END 2021-09-05 12:43 | disposition home or self-care (01) | DRG 658 ==
LOC: M OR 06:25 → M MSPAV 15:14
PROVIDERS: ADMIT Urology; ATTEND Urology
PROC: 8E0W4CZ Robotic Assisted Procedure of Trunk Region, Percutaneous Endoscopic Approach (ICD-10-PCS; 2021-09-02)
PROC: 0TT14ZZ Resection of Left Kidney, Percutaneous Endoscopic Approach (ICD-10-PCS; principal; 2021-09-02 07:30)
DX: C64.2 Malignant neoplasm of left kidney, except renal pelvis (principal); Z90.79 Acquired absence of other genital organ(s); Z87.891 Personal history of nicotine dependence; Z88.2 Allergy status to sulfonamides

== ENCOUNTER → 2021-09-15 | Outpatient (CLI) | payer OTHER ==
[~2021-09-15] MED LIST changes: -LR 1,000 ML IV SCH; -ceFAZolin SOD 2 GM in IV 1 EA IV SCH
[2021-09-15 18:38] LABS: HEMATOCRIT 45.1 % (36.0-47.0); HEMOGLOBIN 14.2 g/dl (12.0-15.5); MEAN CORPUSCULAR HEMOGLOBIN 27.3 pg (27.0-33.0); MEAN CORPUSCULAR HGB CONC 31.5 g/dl (32.0-36.5); MEAN CORPUSCULAR VOLUME 86.7 fl (80.0-96.0); PLATELET COUNT, AUTOMATED 288 10^3/uL (150-450); WHITE BLOOD COUNT 7.7 10^3/uL (4.0-10.0)
[2021-09-15 18:57] LABS: BLOOD UREA NITROGEN 12 MG/DL (7-18); CALCIUM LEVEL 9.7 MG/DL (8.8-10.2); CARBON DIOXIDE LEVEL 31 MEQ/L (21-32); CHLORIDE LEVEL 102 MEQ/L (98-107); CREATININE FOR GFR 0.95 MG/DL (0.55-1.30); GLOMERULAR FILTRATION RATE > 60.0 (>45); GLUCOSE, FASTING 85 MG/DL (70-100); POTASSIUM SERUM 4.3 MEQ/L (3.5-5.1); SODIUM LEVEL 137 MEQ/L (136-145)
== END ==
LOC: M PLALAB 13:58
PROVIDERS: ATTEND Urology
DX: C64.2 Malignant neoplasm of left kidney, except renal pelvis (principal); Z90.5 Acquired absence of kidney

== ENCOUNTER → 2022-05-04 | Outpatient (CLI) | payer OTHER ==
[~2022-05-04] MED LIST changes: +ISOVUE-370 76% 100ML VIAL As Ordered ONE; -LEVO500T3 PO; +LEVO500T4 PO; -MONT10TA10 PO; +MONT10TA97 PO
== END ==
LOC: M RAD 13:14
PROVIDERS: ATTEND Urology
DX: C64.2 Malignant neoplasm of left kidney, except renal pelvis (principal); Z90.5 Acquired absence of kidney
CPT/HCPCS: 71046; 74170; Q9967

== ENCOUNTER → 2022-08-18 | Outpatient (CLI) | payer OTHER ==
[~2022-08-18] MED LIST changes: -ISOVUE-370 76% 100ML VIAL As Ordered ONE; +LEVO1TAB39 PO; -LEVO500T4 PO
== END ==
LOC: M WHC 13:38
PROVIDERS: ATTEND Advanced Practice Midwife
DX: Z12.31 Encounter for screening mammogram for malignant neoplasm of breast (principal)

== ENCOUNTER → 2022-09-08 | Outpatient (CLI) | payer OTHER | LOC: M RAD 16:22 | PROVIDERS: ATTEND Internal Medicine | DX: M16.11 Unilateral primary osteoarthritis, right hip (principal); K59.00 Constipation, unspecified ==

== ENCOUNTER → 2023-05-05 | Outpatient (CLI) | payer OTHER ==
[~2023-05-05] MED LIST changes: +ISOVUE-370 76% 100ML VIAL As Ordered ONE
== END ==
LOC: M RAD 10:08
PROVIDERS: ATTEND Urology
DX: C64.2 Malignant neoplasm of left kidney, except renal pelvis (principal); Z90.5 Acquired absence of kidney; K57.90 Diverticulosis of intestine, part unspecified, without perforation or abscess without bleeding; R93.3 Abnormal findings on diagnostic imaging of other parts of digestive tract; R59.0 Localized enlarged lymph nodes
CPT/HCPCS: 71046; 74170; Q9967

== ENCOUNTER → 2023-08-17 | Outpatient (REF) | payer OTHER, MEDICARE ==
[~2023-08-17] MED LIST changes: -ISOVUE-370 76% 100ML VIAL As Ordered ONE
== END ==
LOC: M LAB REF 16:15
PROVIDERS: ATTEND Internal Medicine
DX: R50.9 Fever, unspecified (principal)

== ENCOUNTER → 2023-10-11 | Outpatient (CLI) | payer MEDICARE, OTHER ==
[~2023-10-11] MED LIST changes: +ISOVUE-370 76% 100ML VIAL As Ordered ONE
== END ==
LOC: M RAD 08:37
PROVIDERS: ATTEND Urology
DX: C64.2 Malignant neoplasm of left kidney, except renal pelvis (principal); Z90.5 Acquired absence of kidney; R16.1 Splenomegaly, not elsewhere classified
CPT/HCPCS: 74170; Q9967

== ENCOUNTER → 2024-03-27 | Outpatient (CLI) | payer MEDICARE, OTHER ==
[~2024-03-27] MED LIST changes: -DOCU-153 PO; -ISOVUE-370 76% 100ML VIAL As Ordered ONE; +STOO100C30 PO
[2024-03-27 11:15] LABS: BLOOD UREA NITROGEN 15 MG/DL (9-23); CALCIUM LEVEL 9.7 MG/DL (8.3-10.6); CARBON DIOXIDE LEVEL 29 MMOL/L (20-31); CHLORIDE LEVEL 104 MMOL/L (98-107); CREATININE FOR GFR 0.71 MG/DL (0.55-1.30); GLOMERULAR FILTRATION RATE > 60.0 (>45); GLUCOSE, FASTING 88 MG/DL (74-106); POTASSIUM SERUM 4.2 MMOL/L (3.5-5.1); SODIUM LEVEL 141 MMOL/L (136-145)
== END ==
LOC: M RAD 09:25
PROVIDERS: ATTEND Urology
DX: R59.9 Enlarged lymph nodes, unspecified (principal); C64.2 Malignant neoplasm of left kidney, except renal pelvis; Z90.5 Acquired absence of kidney

== ENCOUNTER → 2024-03-28 | Outpatient (CLI) | payer MEDICARE, OTHER ==
[~2024-03-28] MED LIST changes: +ISOVUE-370 76% 100ML VIAL ONE
== END ==
LOC: M PLAIMG 12:48
PROVIDERS: ATTEND Urology
DX: R59.9 Enlarged lymph nodes, unspecified (principal); C64.2 Malignant neoplasm of left kidney, except renal pelvis; Z90.5 Acquired absence of kidney
CPT/HCPCS: 74178; Q9967

== ENCOUNTER → 2024-05-10 | Outpatient (CLI) | payer MEDICARE, OTHER ==
[~2024-05-10] MED LIST changes: -ISOVUE-370 76% 100ML VIAL ONE; +ONDA-282 PO; -ONDA4TAB6 PO
== END ==
LOC: M RAD 07:49
PROVIDERS: ATTEND Urology
DX: R16.0 Hepatomegaly, not elsewhere classified (principal)

== ENCOUNTER → 2024-05-25 | Outpatient (CLI) | payer MEDICARE, OTHER ==
[~2024-05-25] MED LIST changes: +GNP250TA9 PO; +VITAMIN D PO; +[UNRECOGNIZED DRUG - OTHER] PO
[2024-05-25 12:23] LABS: HEMATOCRIT 43.8 % (36.0-47.0); HEMOGLOBIN 14.2 g/dl (12.0-15.5); MEAN CORPUSCULAR HEMOGLOBIN 29.3 pg (27.0-33.0); MEAN CORPUSCULAR HGB CONC 32.4 g/dl (32.0-36.5); MEAN CORPUSCULAR VOLUME 90.3 fl (80.0-96.0); PLATELET COUNT, AUTOMATED 172 10^3/uL (150-450); RED BLOOD COUNT 4.85 10^6/uL (4.00-5.40); WHITE BLOOD COUNT 5.9 10^3/uL (4.0-10.0)
[2024-05-25 12:42] LABS: INR 1.09; PARTIAL THROMBOPLASTIN TIME 32.6 SECONDS (24.8-34.2); PROTHROMBIN TIME 13.8 SECONDS (12.5-14.5)
[2024-05-25 12:52] LABS: ALBUMIN 3.9 G/DL (3.2-5.2); ALKALINE PHOSPHATASE 97 U/L (46-116); ALT/SGPT 25 U/L (7.0-40); AST/SGOT 19 U/L (<34); BILIRUBIN,TOTAL 0.9 MG/DL (0.3-1.2); BLOOD UREA NITROGEN 9 MG/DL (9-23); CALCIUM LEVEL 9.5 MG/DL (8.3-10.6); CARBON DIOXIDE LEVEL 30 MMOL/L (20-31); CHLORIDE LEVEL 105 MMOL/L (98-107); CREATININE FOR GFR 0.79 MG/DL (0.55-1.30); GLOMERULAR FILTRATION RATE > 60.0 (>45); GLUCOSE, FASTING 82 MG/DL (74-106); POTASSIUM SERUM 4.5 MMOL/L (3.5-5.1); SODIUM LEVEL 141 MMOL/L (136-145); TOTAL PROTEIN 7.5 G/DL (5.7-8.2)
== END ==
LOC: M PLALAB 11:17
PROVIDERS: ATTEND Urology
DX: D49.0 Neoplasm of unspecified behavior of digestive system (principal); R16.0 Hepatomegaly, not elsewhere classified; R93.89 Abnormal findings on diagnostic imaging of other specified body structures; Z51.89 Encounter for other specified aftercare

== ENCOUNTER → 2024-05-26 | Outpatient (CLI) | payer MEDICARE, OTHER ==
[~2024-05-26] MED LIST changes: +LIDOCAINE 1% MDV 20ML VIAL As Ordered ONE
[2024-05-26 09:05] VITALS: TEMP 98.2
[2024-05-26 12:00] VITALS: BP 141/94; O2SAT 98
== END ==
LOC: M IRPRO 09:02
PROVIDERS: ATTEND Urology
DX: D49.0 Neoplasm of unspecified behavior of digestive system (principal)

== ENCOUNTER → 2024-06-14 | Outpatient (CLI) | payer MEDICARE, OTHER ==
[~2024-06-14] MED LIST changes: +MIDAZOLAM INJ 2MG/2ML VIAL As Ordered ONE; +fentaNYL 100 MCG/2 ML INJECTION As Ordered ONE
[2024-06-14 10:15] VITALS: TEMP 98.4
[2024-06-14 12:30] VITALS: BP 133/82; O2SAT 95
== END ==
LOC: M IRPRO 10:04
PROVIDERS: ATTEND Urology
DX: R16.0 Hepatomegaly, not elsewhere classified (principal); C22.1 Intrahepatic bile duct carcinoma
CPT/HCPCS: 47000; 76942; 88305; 99152; 99153; J2250; J3010

== ENCOUNTER → 2024-07-21 | Outpatient (REF) | payer MEDICARE, OTHER ==
[~2024-07-21] MED LIST changes: +ESTR1CRE PV; -LIDOCAINE 1% MDV 20ML VIAL As Ordered ONE; -MIDAZOLAM INJ 2MG/2ML VIAL As Ordered ONE; -fentaNYL 100 MCG/2 ML INJECTION As Ordered ONE
[2024-07-21 14:08] LABS: CARCINOEMBRYONIC ANTIGEN < 2.0 NG/ML (<2.5)
[2024-07-21 14:23] LABS: CA19-9 TUMOR MARKER,CARBOHYDRA 60.2 U/ML (<35.0)
== END ==
LOC: M LAB REF 12:42
PROVIDERS: ATTEND Internal Medicine
DX: C64.2 Malignant neoplasm of left kidney, except renal pelvis (principal); R97.8 Other abnormal tumor markers

== ENCOUNTER → 2024-07-26 | Outpatient (CLI) | payer MEDICARE, OTHER ==
[~2024-07-26] MED LIST changes: +GASTROGRAFIN SOLUTION 30ML As Ordered ONE; +ISOVUE-370 76% 100ML VIAL As Ordered ONE
== END ==
LOC: M RAD 12:34
PROVIDERS: ATTEND Internal Medicine Hematology & Oncology
DX: C22.1 Intrahepatic bile duct carcinoma (principal); K76.9 Liver disease, unspecified; Z90.5 Acquired absence of kidney; R16.1 Splenomegaly, not elsewhere classified; M41.9 Scoliosis, unspecified
CPT/HCPCS: 71260; 74177; Q9963; Q9967

== ENCOUNTER 2024-09-19 10:40 | Day surgery (SDC) | payer MEDICARE, OTHER ==
[~2024-09-19] VITALS: Ht 170.2 cm; Wt 80.0 kg
[~2024-09-19 10:40] MED LIST changes: -GASTROGRAFIN SOLUTION 30ML As Ordered ONE; -ISOVUE-370 76% 100ML VIAL As Ordered ONE; +NS 250 ML IV ONE
[2024-09-19] MEDS ORDERED: LIDOCAINE 2% 100MG/5ML SDV (FOR ANES.) As Ordered ONE (13:51)
[2024-09-19] MEDS ORDERED: propofoL 200 MG/20 ML VIAL As Ordered ONE (13:52)
[2024-09-19] MEDS ORDERED: ePHEDrine SULFATE 25 MG/5 ML(5MG/ML) SYRINGE As Ordered ONE (13:56)
[2024-09-19 14:25] VITALS: TEMP 98.4
[2024-09-19 14:48] VITALS: BP 104/62; O2SAT 100
== END 2024-09-19 14:51 | disposition home or self-care (01) ==
LOC: M OPP 10:40
PROVIDERS: ATTEND Surgery
DX: Z12.11 Encounter for screening for malignant neoplasm of colon (principal); K64.8 Other hemorrhoids; K57.30 Diverticulosis of large intestine without perforation or abscess without bleeding; D17.5 Benign lipomatous neoplasm of intra-abdominal organs; K31.A19 Gastric intestinal metaplasia without dysplasia, unspecified site; K22.70 Barrett's esophagus without dysplasia; K22.89 Other specified disease of esophagus; K92.2 Gastrointestinal hemorrhage, unspecified; K21.9 Gastro-esophageal reflux disease without esophagitis; M19.90 Unspecified osteoarthritis, unspecified site; M79.7 Fibromyalgia; F41.9 Anxiety disorder, unspecified; F32.A Depression, unspecified; Z88.2 Allergy status to sulfonamides; Z79.899 Other long term (current) drug therapy; Z85.05 Personal history of malignant neoplasm of liver
CPT/HCPCS: 43239; 88305; G0121

== ENCOUNTER → 2025-06-13 | Outpatient (CLI) | payer MEDICARE, OTHER ==
[~2025-06-13] MED LIST changes: -NS 250 ML IV ONE; +PANT40TA29
[2025-06-13 13:39] LABS: PLATELET COUNT, AUTOMATED 112 10^3/uL (150-450)
[2025-06-13 13:54] LABS: INR 1.02
[2025-06-13 14:03] LABS: ALT/SGPT 15 U/L (7.0-40); AST/SGOT 21 U/L (<34); CALCIUM LEVEL 8.6 MG/DL (8.3-10.6); CARBON DIOXIDE LEVEL 28 MMOL/L (20-31); CHLORIDE LEVEL 102 MMOL/L (98-107); CREATININE FOR GFR 0.72 MG/DL (0.55-1.30); GLOMERULAR FILTRATION RATE > 90.0 (>45); POTASSIUM SERUM 4.1 MMOL/L (3.5-5.1); SODIUM LEVEL 140 MMOL/L (136-145)
[2025-06-13 14:21] LABS: CA19-9 TUMOR MARKER,CARBOHYDRA 16.5 U/ML (<35.0)
== END ==
LOC: M LAB 12:35
PROVIDERS: ATTEND Psychiatry & Neurology Child & Adolescent Psychiatry
DX: C22.1 Intrahepatic bile duct carcinoma (principal)

== ENCOUNTER 2025-06-15 10:01 | Outpatient (CLI) | payer MEDICARE, OTHER ==
[~2025-06-15] VITALS: Ht 170.2 cm; Wt 80.0 kg
[2025-06-15] MEDS ORDERED: NS (Normal Saline) 0.9% 250 ML IV ONE (10:30)
[2025-06-15 10:56] VITALS: BP 178/71; TEMP 97.8; O2SAT 100
[2025-06-15 11:15] VITALS: BP 98/59; TEMP 98.1; O2SAT 100
[2025-06-15 13:00] VITALS: BP 113/71; TEMP 98.5
== END 2025-06-15 13:20 | disposition home or self-care (01) ==
LOC: M INFU 10:01
PROVIDERS: ATTEND Family Medicine
DX: D64.9 Anemia, unspecified (principal); Z88.2 Allergy status to sulfonamides; M85.852 Other specified disorders of bone density and structure, left thigh; M85.851 Other specified disorders of bone density and structure, right thigh
CPT/HCPCS: 36430; 77080; P9016

== ENCOUNTER → 2025-06-15 | Outpatient (CLI) | payer MEDICARE, OTHER | LOC: M WHC 07:17 | PROVIDERS: ATTEND Nurse Practitioner Family | DX: M85.852 Other specified disorders of bone density and structure, left thigh (principal); M85.851 Other specified disorders of bone density and structure, right thigh ==

== ENCOUNTER → 2025-07-12 | Outpatient (CLI) | payer MEDICARE, OTHER ==
[~2025-07-12] MED LIST changes: +PROHANCE 279.3MG/ML 15ML VIAL As Ordered ONE
== END ==
LOC: M RAD 16:19
PROVIDERS: ATTEND Internal Medicine Hematology & Oncology
DX: C22.1 Intrahepatic bile duct carcinoma (principal)
CPT/HCPCS: 70553; A9576

== ENCOUNTER → 2025-08-30 | Outpatient (CLI) | payer MEDICARE, OTHER ==
[~2025-08-30] MED LIST changes: -PROHANCE 279.3MG/ML 15ML VIAL As Ordered ONE
[2025-08-30 13:56] LABS: PLATELET COUNT, AUTOMATED 128 10^3/uL (150-450)
[2025-08-30 14:11] LABS: INR 0.96
[2025-08-30 14:24] LABS: ALT/SGPT 9.0 U/L (7.0-40); AST/SGOT 16.0 U/L (<34); CALCIUM LEVEL 8.8 MG/DL (8.3-10.6); CARBON DIOXIDE LEVEL 29.0 MMOL/L (20-31); CHLORIDE LEVEL 104.0 MMOL/L (98-107); CREATININE FOR GFR 0.74 MG/DL (0.55-1.30); GLOMERULAR FILTRATION RATE 88.6 (>45); POTASSIUM SERUM 4.1 MMOL/L (3.5-5.1); SODIUM LEVEL 142.0 MMOL/L (136-145)
[2025-08-30 14:44] LABS: CA19-9 TUMOR MARKER,CARBOHYDRA 18.4 U/ML (<35.0)
== END ==
LOC: M LAB 12:50
PROVIDERS: ATTEND Psychiatry & Neurology Child & Adolescent Psychiatry
DX: C22.1 Intrahepatic bile duct carcinoma (principal)

== ENCOUNTER → 2025-10-25 | Outpatient (CLI) | payer MEDICARE, OTHER ==
[2025-10-25 15:44] LABS: PLATELET COUNT, AUTOMATED 134 10^3/uL (150-450)
[2025-10-25 16:05] LABS: INR 1.04
[2025-10-25 16:11] LABS: ALT/SGPT 17.0 U/L (7.0-40); AST/SGOT 23.0 U/L (<34); CALCIUM LEVEL 8.8 MG/DL (8.3-10.6); CARBON DIOXIDE LEVEL 30.0 MMOL/L (20-31); CHLORIDE LEVEL 100.0 MMOL/L (98-107); CREATININE FOR GFR 0.77 MG/DL (0.55-1.30); GLOMERULAR FILTRATION RATE 84.5 (>45); POTASSIUM SERUM 3.9 MMOL/L (3.5-5.1); SODIUM LEVEL 137.0 MMOL/L (136-145)
[2025-10-25 16:28] LABS: CA19-9 TUMOR MARKER,CARBOHYDRA 34.4 U/ML (<35.0)
== END ==
LOC: M LAB 15:09
PROVIDERS: ATTEND Psychiatry & Neurology Child & Adolescent Psychiatry
DX: C22.1 Intrahepatic bile duct carcinoma (principal)